=== PATIENT | female | born 1970 | race Caucasian/White ===

== ENCOUNTER 2018-08-21 13:37 | Outpatient (CLI) | payer OTHER ==
--- NOTE | 2018-08-21 18:18 | MRI ---
LEFT KNEE MRI WITHOUT IV CONTRAST: 08/21/18 HISTORY: 48-year-old female with history of M25.562 - pain in left knee. Twisted her ankle. Multiplanar, multisequence MRI examination of the knee is performed. No abnormal joint effusion. Medi al and lateral menisci, anterior and posterior cruciate ligaments, collateral ligament complexes and quadriceps and patellar tendons appear intact. Extensor mechanism is unremarkable. No significant abnormal marrow edema. No acute osteochondral defect. IMPRESSION: No MRI evidence for significant acute internal derangement. POS: ELIZA
== END 2018-08-21 13:38 | disposition home or self-care (01) ==
LOC: SCSMRI 13:37
PROVIDERS: ATTEND Orthopaedic Surgery
DX: M25.562 Pain in left knee (principal); G89.29 Other chronic pain; S83.207D Unspecified tear of unspecified meniscus, current injury, left knee, subsequent encounter

== ENCOUNTER 2019-02-06 12:53 | Outpatient (CLI) | payer OTHER ==
--- NOTE | 2019-02-09 08:16 | MMO ---
Bilateral MAMMO Bilat Screen DDI. CLINICAL HISTORY: Patient is 48 years old and is seen for screening. The patient has no family history of breast cancer. The patient has no personal history of cancer. VIEWS: The views performed were: bilateral craniocaudal and bilateral mediolateral oblique. FILMS COMPARED: The present examination has been compared to prior imaging studies performed at [facility] on 03/14/2011, 09/29/2015 and 10/18/2016, and at [facility] on 11/01/2016. This study has been interpreted with the assistance of computer-aided detection. MAMMOGRAM FINDINGS: There are scattered fibroglandular densities. There are stable benign appearing densities seen in both breasts. There are no suspicious masses, suspicious calcifications, or new areas of architectural distortion. IMPRESSION: THERE IS NO MAMMOGRAPHIC EVIDENCE OF MALIGNANCY. A ROUTINE FOLLOW-UP MAMMOGRAM IN 1 YEAR IS RECOMMENDED. ACR BI-RADS Category 2 - Benign finding MAMMOGRAPHY NOTE: 1. A negative mammogram report should not delay a biopsy if a dominant of clinically suspicious mass is present. 2. Approximately 10% to 15% of breast cancers are not detected by mammography. 3. Adenosis and dense breasts may obscure an underlying neoplasm.
== END 2019-02-06 12:54 | disposition home or self-care (01) ==
LOC: SCSMAMMO 12:53
PROVIDERS: ATTEND Obstetrics & Gynecology
DX: Z12.31 Encounter for screening mammogram for malignant neoplasm of breast (principal)
CPT/HCPCS: 77067

== ENCOUNTER 2019-10-21 09:52 | Inpatient (IN) | payer OTHER ==
--- NOTE | 2019-10-21 10:03 | CT ---
CT HEAD WITHOUT CONTRAST: HISTORY: Level I stroke. Headache x2 days. COMPARISON: None. FINDINGS: Hemorrhage: There is evidence of subarachnoid hemorrhage along the left sylvian fissure and left temp oral sulci. There also is evidence of intraparenchymal hematoma, measuring 5.8 x 2.5 cm. There is associated sulcal effacement. Mild mass effect upon the left lateral ventricle, occipital horn. Mild mass effect upon the left ambient cistern likely due to a small component of the left uncal herniation. There appears be hyperdensity along the left tentorium which may represent subdural hemat brandi. Brain parenchyma: With regard to the right cerebrum, no acute abnormality. Ventricular system: No evidence of hydrocephalus. Calvarium: Intact. Sinuses and mastoid air cells: Adequate aeration. IMPRESSION: Intracranial hemorrhage as described above. Associated sulcal effacement and mass effect. Results study discussed with Dr. Siddiqui on 10/21/2019 at 10:02 a.m. CODE CR Transcribed Date/Time: 10/21/2019 10:19 AM
--- NOTE | 2019-10-21 10:21 | CT ---
CTA HEAD WITH AND WITHOUT CONTRAST: CT BRAIN WITH CONTRAST: CTA NECK WITH CONTRAST: CT NECK SOFT TISSUES WITH CONTRAST: INDICATION: Stroke. COMPARISON: None. TECHNIQUE: CT angiogram of the head and neck are performed in the axial plane. Three-dimensional reformatted socrates ges are submitted for interpretation. FINDINGS: Pathologic enhancement: No pathologic enhancement the brain. Redemonstration of previous identified i ntracranial hemorrhage. Sinuses: Adequate aeration of the paranasal sinuses and mastoid air cells. Orbits: Bilateral ocular lenses are appropriately located. Both globes are intact. Retrobulbar fat is preserved. Symmetric attenuation of the optic nerves and ocular rectus muscles. Salivary glands:Symmetric attenuation of the parotid and submandibular glands. Thyroid gland: Unremarkable. Lymph nodes: No evidence of lymphadenopathy by size criteria. Paraspinal muscles: Symmetric attenuation of the sternocleidomastoid muscles. Appropriate attenuation of the paraspinal muscles. Cervical spine:Vertebral body height is maintained. No fracture. No significant central canal stenosi s or significant neural foraminal narrowing. Limited evaluation by technique. Upper mediastinum and lung apices: Chronic changes. No acute abnormality. Aorta: Visualized aortic arch has appropriate enhancement and luminal diameter. Right carotid artery: The origin of the right carotid artery has appropriate enhancement and luminal diameter. The common carotid artery, carotid bifurcation and internal carotid artery have appropriate enhancement and luminal diameter. No significant stenosis based upon NASCET criteria. Left carotid: The origin of the left carotid artery has appropriate enhancement and luminal diameter. The common carotid artery, carotid bifurcation and internal carotid artery have appropriate enhancement and luminal diameter. No symmetric stenosis based upon NASCET criteria. Subclavian arteries: Patent and symmetric. Vertebral arteries: Patent throughout their course in the neck. Dominant left vertebral artery. Intracranial internal carotid arteries: Symmetric enhancement and luminal diameter. Anterior circulation: Symmetric enhancement and luminal diameter of the A1 segments and proximal A2 s egments. The right M1 segment and proximal MCA branches have appropriate enhancement and luminal diameter. There is mild irregularity involving the entire left M1 segment. There does not appear to b e any abrupt occlusion. There is no evidence of thrombus. With regard to the anterior circulation, no evidence of aneurysm. Intracranial vertebral arteries: Patent. Posterior circulation: Appropriate enhancement and luminal diameter of the basilar artery and bilater al P1 segments. CT VENOGRAM: The suspected left tentorial subdural hematoma is in fact a thrombus in the left transverse sinus. On the CT angiogram there is absence of enhancement of the left transverse sinus, sigmoid sinus and left jugular vein. Small areas of filling defects in the cervical left jugular vein are noted. IMPRESSION: 1. No vascular occlusion at the level [place] of [place]iley. 2. No significant stenosis of the cervical carotid arteries, based upon NASCET criteria. 3. No evidence of a posterior circulation or anterior circulation aneurysm. 4. Irregularity of the left M1 segment likely representing components of vasospasm secondary to subar achnoid blood. 5. Left transverse sinus and sigmoid sinus venous thrombosis with thrombus extending into the left ju gular vein. Results of study discussed with Dr. Siddiqui on 10/21/2019 at 10:19 a.m. CODE CR Transcribed Date/Time: 10/21/2019 10:45 AM
[2019-10-21] MEDS ORDERED: ACETAMINOPHEN IVPB PRN (10:26)
[2019-10-21] MEDS ORDERED: Aminocaproic Acid 5 GM in Sodium Chloride 0.9% 250 ML 250 ML IV SCH (10:30)
[2019-10-21] MEDS ORDERED: Sodium Chloride 0.9% 1,000 ML IV SCH (10:30)
[2019-10-21] MEDS ORDERED: niCARdipine 25 MG in Sodium Chloride 0.9% 250 ML 250 ML IVPB SCH ×2 (10:30→13:43)
[2019-10-21] MEDS ORDERED: Aminocaproic Acid 1 GM in Sodium Chloride 0.9% 250 ML 250 ML IV SCH (10:30)
[2019-10-21 10:44] LABS: #Monocytes 0.5 thou/uL (0.11-0.59); #Neutrophils 7.9 thou/uL (1.40-6.50); %Basophils 0.1 % (0.0-1.0); %Eosinophils 0.1 % (0.0-10.0); %Lymphocytes 10.6 % (21.0-51.0); %Monocytes 5.3 % (0.0-10.0); Hemoglobin 14.8 g/dL (12.0-16.0); Mean Corpuscular HGB CONC 34.2 g/dL (32.0-36.0); Mean Corpuscular Hemoglobin 31.3 pg (27.0-31.0); Mean Corpuscular Volume 91.6 fL (78.0-98.0); Mean Platelet Volume 9.1 fL (7.4-10.4); Platelet Count 217 thou/uL (130-400); RBC Distribution Width 10.7 % (11.5-14.5); Red Blood Cell (RBC) Count 4.74 mill/uL (4.20-5.40); White Blood Cell (WBC) Count 9.4 thou/uL (4.8-10.8)
[2019-10-21 10:52] LABS: Prothrombin Time 12.7 SEC (12.0-14.7)
[2019-10-21 11:08] LABS: ALT (SGPT) 12 U/L (8-55); AST (SGOT) 19 U/L (5-34); Albumin 3.8 g/dL (3.5-5.0); Alkaline Phosphatase 39 U/L (40-110); Anion Gap 14 mmol/L (10-20); BUN (Urea Nitrogen) 13 mg/dL (7.0-18.7); Bilirubin, Total 0.3 mg/dL (0.2-1.2); Calc. Creatinine Clearance 0 mL/min (70-130); Calcium 9.3 mg/dL (7.8-10.44); Carbon Dioxide 21 mmol/L (22-29); Chloride 109 mmol/L (98-107); Estimated GFR-MDRD 76; Globulin 3.1 g/dL (2.4-3.5); Glucose 124 mg/dL (70-105); Potassium 4.6 mmol/L (3.5-5.1); Protein, Total 6.9 g/dL (6.0-8.3); Sodium 139 mmol/L (136-145)
--- NOTE | 2019-10-21 11:38 | MRI ---
MR VENOGRAM: HISTORY: Suspected left dural thrombus. COMPARISON: None. TECHNIQUE: Coronal 2D [id number] imaging is performed. Maximum intensity projection images are submitted for interpretation. FINDINGS: Appropriate flow-related signal in the sagittal sinus, internal cerebral veins, vein of Alex, straig ht sinus, right transverse sinus, right sigmoid sinus and right jugular vein. Absence of flow-related signal in the left transverse sinus, left sigmoid sinus and left jugular vein. IMPRESSION: MRV confirmation of suspected thrombus of the left venous system as commented upon in the CT angiogra m of the head. Transcribed Date/Time: 10/21/2019 12:25 PM
--- NOTE | 2019-10-21 11:44 | MRI ---
MRI BRAIN WITH AND WITHOUT CONTRAST: HISTORY: Venous sinus thrombosis with associated venous infarct. COMPARISON: None. FINDINGS: Gradient echo sequence: Extensive hypointensity corresponding to previously identified intraparenchym al and subarachnoid hemorrhage. Largest component of parenchymal hemorrhage is in the left temporal lobe. Calvarium: Appropriate T1 marrow signal intensity. Midline brain parenchyma: Unremarkable. Cerebrum: Re-demonstration of an intraparenchymal hemorrhage centered in the left temporal lobe. Ther e is associated mass effect, sulcal effacement and edema. The hematoma measures 3.6 x 7.4 cm. Mild mass effect upon the occipital horn of the left lateral ventricle. The axial FLAIR sequence demonstra allison small amounts of subarachnoid blood in the left sylvian fissure and along the left temporal convexity. Additional small amounts of subarachnoid blood are suspected in the left occipital parieta l sulci. Ventricles: No evidence of hydrocephalus. Cisterns: Mild effacement of the left ambient cistern due to a small component of left uncal herniati on. Sinuses and mastoid air cells: Adequate aeration. Diffusion: Central arterial flow is maintained. Scattered restricted diffusion in the left temporal l obe. Post contrast images: Mild dural enhancement overlying the left temporal convexity, in the region of associated underlying parenchymal infarct/hemorrhage. No evidence of an enhancing mass in the left temporal lobe. Evaluation is limited due to extensive edema. IMPRESSION: 1. Large intraparenchymal hemorrhage in the left temporal lobe with associated heterogeneous infarcti on. 2. Enhancement of the overlying dura likely secondary to venous sinus thrombosis involving the left t ransverse sinus, sigmoid sinus and jugular vein. 3. Small amount of left-sided uncal herniation with mild effacement of the left ambient cistern. Transcribed Date/Time: 10/21/2019 12:14 PM
[2019-10-21] MEDS ORDERED: niMODipine 30 MG CAP PO SCH (13:00)
[2019-10-21] MEDS ORDERED: Acetaminophen 650 MG/20.3 ML UDCUP PO PRN (13:09)
[2019-10-21] MEDS: Sodium Chloride 0.9% 1,000 ML IV SCH ×2 (13:21→20:27)
[2019-10-21] MEDS: Ondansetron PF 4 MG/2 ML Vial IVP PRN (13:37)
--- NOTE | 2019-10-21 13:44 | CON ---
DATE OF CONSULTATION: 10/21/2019 CONSULTING PHYSICIAN: Juan Champion MD REASON FOR CONSULTATION: Medical management. HISTORY OF PRESENT ILLNESS: Karen is a 49-year-old female, who came in with a left-sided subarachnoid hemorrhage from venous thrombosis. She has altered mental status and an expressive aphasia. Symptoms started suddenly earlier today. Prior to this, she had been perfectly healthy. PAST MEDICAL HISTORY: Essentially, unremarkable. PAST SURGICAL HISTORY: She had ankle surgery in the past. SOCIAL HISTORY: Nonsmoker. Does not consume alcohol. Does not use illicit drugs. She works full-time as a legal support analyst. MEDICATIONS: Prior to admission, none. ALLERGIES: NONE. REVIEW OF SYSTEMS: Cannot be obtained secondary to her expressive aphasia. PHYSICAL EXAMINATION: VITAL SIGNS: Heart rate 61, blood pressure 118/77, O2 saturation 95%, and respiratory rate 19. GENERAL: She is lying quietly in bed, in no distress. HEENT: Some mild swelling in the left side of her face. NECK: She has no adenopathy. No JVD. LUNGS: Clear. CARDIAC: S1 and S2. Regular. ABDOMEN: Soft. EXTREMITIES: No edema. LABORATORY DATA: Sodium 139, potassium 4.6, chloride 109, CO2 of 21, BUN 13, creatinine 0.8, and glucose 124. INR 1.0, PTT 21.0. White blood cell count 9.4, hematocrit 43.4, and platelet count 217. IMAGING DATA: CT was reviewed in detail. ASSESSMENT: Venous thrombosis with subarachnoid hemorrhage. PLAN: 1. Supportive care with nicardipine drip as needed. Monitor mental status for decline, possible intubation if neuro status deteriorates. 2. Discussed the above with Dr. Champion. 3. I have reviewed the orders and agree with current medicines. Job ID: [id number]
[2019-10-21] MEDS ORDERED: Magnevist 469MG/ML 20 ML VIAL ONE (15:12)
--- NOTE | 2019-10-21 15:20 | CON ---
DATE OF CONSULTATION: 10/21/2019 HISTORY OF PRESENT ILLNESS: The patient is seen and examined. I agree with Chery Avila's evaluation on 10/21/2019. 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 CT scan at that time revealed a left temporal intracerebral hematoma with subarachnoid extension into the left perisylvian fissure. Additional imaging has included CT angiography, MRI of the brain with MRV. These studies revealed no evidence of aneurysm or vascular malformation. They also revealed no evidence of neoplasm. The imaging does reveal significant left-sided venous sinus thrombosis involving the transverse and sigmoid sinuses. A followup CT scan also revealed extension of the left temporal hemorrhage. The degree of mass effect; however, is relatively modest. On exam, the patient has a dense dysphagia both receptive and expressive. There is no focal motor finding. IMPRESSION AND PLAN: Venous sinus thrombosis with intracranial hemorrhage. The degree of intracranial hemorrhage is significant and showed evidence of progression earlier in the day. At this time, it is not surgical in nature, but is high risk for progression. Any meaningful enlargement may become life-threatening, require surgical evacuation. As such, I recommend ongoing close observation, keeping the patient n.p.o., and holding off on any anticoagulation or antiplatelet agents. I have consulted Neurology and discussed the case with them. We will continue to discuss and consider risks and benefits of initiating anticoagulation over the coming days. Discussed in detail with the patient, her mother, her , and her daughter. Job ID: [id number]
--- NOTE | 2019-10-21 15:32 | CT ---
CT HEAD WITHOUT CONTRAST: HISTORY: Dural venous sinus thrombosis with associated hemorrhage and probable venous infarct. COMPARISON: 10/21/2019 CORRELATION: CT angiogram head from 10/21/2019. Brain MRI/MRV from 10/21/2019. FINDINGS: Hemorrhage: Redemonstration of parenchymal hemorrhage centered in the left temporal lobe. The overall degree of parenchymal hemorrhage has not significantly changed and measures 4.5 x 3.1 cm. Redemonstration of subarachnoid hemorrhage as well as thrombosis of the left dural sinus. Brain parenchyma: There appears to be progression of cytotoxic edema involving the left cerebrum. The re is increased sulcal effacement of the left cerebrum. The left frontal sulci and the left occipital sulci appear to have become more effaced. Additionally, there may be a component of decreas ed graves-white matter differentiation in the left occipital parietal region. Stable mass effect upon the left lateral ventricle. Persistent and stable left uncal herniation. Ventricular system: No significant change in the ventricular system. Calvarium: Intact. Sinuses and mastoid air cells: Adequate aeration. IMPRESSION: 1. Worsening edema involving the left cerebrum. There appears to be increased sulcal effacement of th e left cerebrum along with possible loss of graves-white matter differentiation in the left occipital parietal region. 2. Redemonstration of intraparenchymal hemorrhage and subarachnoid hemorrhage as well as the left tra nsverse sinus and sphenoid sinus thrombus. Results of study discussed with Chery Avila, Nurse Practitioner for Neurosurgery on 10/21/2019 at 3 :27 p.m. CODE CR Transcribed Date/Time: 10/21/2019 3:38 PM
[2019-10-21] MEDS: Heparin 25,000 units/D5W 500 ML IV SCH (16:35)
[2019-10-21] MEDS ORDERED: Dexamethasone 10 MG/ML VIAL SLOW IVP SCH (16:45)
[2019-10-21] MEDS: Acetaminophen 325 MG TAB PO PRN (16:49)
[2019-10-21] MEDS: Fentanyl 100 MCG/2 ML VIAL SLOW IVP PRN (17:22)
--- NOTE | 2019-10-21 18:19 | CON ---
DATE OF CONSULTATION: PRIMARY CARE PHYSICIAN: None. PRIMARY TEAM: Neurosurgery, Dr. Champion. REASON FOR CONSULTATION: Medical management. 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 This morning, she developed altered mental status and expressive aphasia. She was brought in originally to the hospital and CT scan demonstrating intracranial hemorrhage. CT angiography and MRI with MRV revealed a left-sided venous sinus thrombosis of the transverse and sigmoid sinuses as well as the left temporal intercerebral hematoma with subarachnoid extension. The patient was seen in the emergency room by Dr. Champion. He determined she was not a candidate for urgent surgical intervention at that time, but started her on steroids and is doing aggressive blood pressure control as of yet. She has not needed any blood pressure medicines though. The patient is now in the ICU. Dr. Go seen the patient as well for critical care. According to the family, who is present at the bedside, her , he stated that her speech has improved since noon. She still has trouble understanding with what we were saying and getting any words out. She was able to communicate, but she has significant headache and we did get approval from Dr. Champion to give small doses of fentanyl. We need to avoid any NSAIDs or aspirin or blood thinners. PAST MEDICAL HISTORY: All history taken from the and the chart. No previous medical problems. PAST SURGICAL HISTORY: Ankle surgery for callus removal in the past. SOCIAL HISTORY: No tobacco, alcohol, or illicit drug use. 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 ALLERGIES: NO KNOWN DRUG ALLERGIES. MEDICATIONS: NuvaRing. PAST FAMILY HISTORY: Unable to obtain at this time secondary to mental status. REVIEW OF SYSTEMS: Cannot be obtained secondary to her aphasia and mental status changes other than she was able to report the headache. PHYSICAL EXAMINATION: VITAL SIGNS: Blood pressure 142/79, pulse 72, respirations 22, and O2 saturation 94% on room air. GENERAL: This is a well-developed, well-nourished white female, lying quietly in bed, in no distress. HEENT: Pupils are not equally sized, both round and reactive to light, the right is about 4 mm and the left is about 3 mm. She does have intact extraocular movements, though has difficulty following my commands to check test some. She has some mild left facial swelling. NECK: Supple. No tenderness to palpation. She is not able to say if she has any pain in the neck. No lymphadenopathy. No JVD. No thyroid nodules or enlargement. HEART: Regular rate and rhythm. No murmurs, rubs, or gallops. LUNGS: Clear to auscultation bilaterally. No wheezes, crackles, or rhonchi. ABDOMEN: Soft. Normoactive bowel sounds. No hepatosplenomegaly or other masses. No guarding or evidence of tenderness to palpation. EXTREMITIES: No clubbing, cyanosis, or edema. NEUROLOGIC: The patient moves all of her extremities, though not always to command. She has to be shown what she needs to do. She is able to reposition herself in the bed with good coordination, earlier when she started sliding down. Speech, she is able to say a few words clearly, but most of the time she cannot get the words out she wants to and does not seem to understand all exactly what we were talking about much of the time. LABORATORY DATA: CBC grossly within normal limits. Coagulation profile shows a PT of 12, INR of 1, and aPTT of 21. Complete metabolic panel is notable for chloride of 109, carbon dioxide of 21, glucose of 124, and alkaline phosphatase of 39 and the rest was within normal limits. Creatine kinase was normal. Troponin was negative x1. CT of the brain along with MRI and MRV of the brain and CTA of the brain all reviewed. See HPI for the results. ASSESSMENT: 1. Venous sinus thrombosis with intracranial hemorrhage. Dr. Champion is managing this with steroids to decrease the swelling that is more evident on the most recent CT scan and we are also going to keep her blood pressure under control. 2. Expressive and receptive aphasia. We will need to have Speech Therapy evaluate her swallow as well and we will have PT and OT work with her as well when she is stabilized in the hospital. For now, she is n.p.o. until cleared to eat by Neurosurgery. 3. Gastrointestinal prophylaxis. The patient is on famotidine twice a day. 4. Deep venous thrombosis prophylaxis. We will put the patient on sequential compression devices while in bed and get her ambulating as soon as safe per Neurosurgery. No anticoagulants at this time. 5. Code status. The patient is a full code. Her medical decision maker is her , his name is Torres Degroot. Job ID: [id number]
--- NOTE | 2019-10-21 18:39 | HP ---
HISTORY OF PRESENT ILLNESS: The patient is a 49-year-old otherwise healthy female, who presented to the emergency department around 8:40 this morning following the development of acute altered mental status. The patient was reportedly normal per her daughter around 7 this morning, but sometime between 7:00 and 8:00 a.m., she became progressively more confused. Her office staff brought her to the emergency department for further evaluation. Her daughter does report that she had been complaining of a headache over the last few days. Upon arrival to the ER, the patient was evaluated with a noncontrast head CT and found to have a large left temporal intracranial hemorrhage with subarachnoid extension into the left sylvian fissure. Neurosurgery was contacted at this point. We recommended transfer to [facility]. Upon arrival to our ER, she was evaluated further with CT of the brain, MRI of the brain with and without contrast, and MRV of the brain, which is notable for blooming left temporal intracranial hemorrhage as well as a left venous thrombosis extending into the transverse and sigmoid sinuses. I examined the patient in the ER at the bedside. She had significant expressive aphasia as well as dysphagia. She had slight right pupillary enlargement, but both were reactive. She was seen moving all fours spontaneously. She would follow some commands. She was somewhat confused and not answering questions appropriately. She has reportedly otherwise healthy and most of the history was obtained from her daughter and friends. PAST MEDICAL HISTORY: Of only migraine headache. PAST SURGICAL HISTORY: Left ankle surgery. SOCIAL HISTORY: The patient does not smoke, drink, or use any drugs. ALLERGIES: SHE HAS NO KNOWN DRUG ALLERGIES. REVIEW OF SYSTEMS: Currently unobtainable secondary to the patient's condition. She does not reportedly take any anticoagulants. PHYSICAL EXAMINATION: GENERAL: The patient is sitting up. She is confused and not answering questions appropriately. HEENT: Her head is normocephalic and atraumatic. Right pupil is slightly larger than the left, 5 mm versus 4, both are reactive to light. ENT, mucosa are pink, intact, and moist. The patient has notable expressive aphasia. NECK: Nontender to palpation. Free active range of motion. No meningismus or nuchal rigidity. RESPIRATORY: Symmetric chest expansion. No evidence of dyspnea. CARDIOVASCULAR: Regular rate and rhythm. MUSCULOSKELETAL: No obvious deformity. She is seen moving all fours spontaneously. She is following some commands and will squeeze my hands and appears to have good strength throughout. NEUROLOGIC: She is quite confused and not oriented to person, place, or time. When she does answer questions, her speech does appear fluid. ASSESSMENT AND PLAN: This is a 49-year-old previously healthy female with acute onset of altered mental status, was found to have a large left temporal intracranial hemorrhage and also underlying left venous thrombosis. She will be admitted to the ICU for close monitoring, q.1 neuro checks. We will keep her systolic blood pressure with a goal of 100 to 150. I have ordered Cardene for this purpose. We will repeat her CT at 1500 hours this afternoon and at that time, determine plan for possible anticoagulation with heparin. We will also ask the Hospitalist Service, Neurology, Critical Care to consult. PT, OT Speech Therapy, and Case Management has also been consulted. We will keep her n.p.o. and watch her closely. Job ID: [id number]
[2019-10-21] MEDS: Dexamethasone 4 mg/ml Vial SLOW IVP SCH (19:02)
[2019-10-21] MEDS: Acetaminophen 650 MG Suppository PR PRN (19:30)
[2019-10-21] MEDS: Famotidine/PF 20 mg/2ml Vial SLOW IVP SCH (21:24)
[2019-10-21] MEDS: levETIRAcetam In NaCl (Iso-Os) 1,000 MG in Premix Bag 1 BAG IVPB SCH (21:24)
[2019-10-22] MEDS: Acetaminophen 650 MG Suppository PR PRN ×2 (00:08→05:20)
[2019-10-22] MEDS: Dexamethasone 4 mg/ml Vial SLOW IVP SCH ×4 (00:08→18:07)
[2019-10-22] MEDS: Fentanyl 100 MCG/2 ML VIAL SLOW IVP PRN ×4 (00:24→16:07)
[2019-10-22] MEDS: Sodium Chloride 0.9% 1,000 ML IV SCH ×3 (04:22→18:08)
[2019-10-22] MEDS: Ondansetron PF 4 MG/2 ML Vial IVP PRN ×2 (07:08→13:14)
--- NOTE | 2019-10-22 08:32 | PRG ---
DATE OF SERVICE: 10/22/2019 SUBJECTIVE: The patient remains in the intensive care unit. She has not had much change in her neuro status. She continues to have a receptive aphasia. Family remains vigilant at bedside. OBJECTIVE: HEENT: Unchanged. NECK: No adenopathy or JVD. LUNGS: Clear. CARDIAC: S1 and S2, regular. ABDOMEN: Soft. EXTREMITIES: No edema. NEUROLOGICAL: She seems weaker in the right arm than the left. LABORATORY DATA: No new labs were done today except for PTT of 29.8. Of note, she is now on heparin drip. ASSESSMENT: The patient has a left-sided intracranial hemorrhage with venous sinus thrombosis. PLAN: She has been being managed by the neurosurgeons with a heparin drip. She has not required nicardipine for hypertension. She remains on IV fluids and dexamethasone. Pulmonary will continue to follow. She is in the ICU. Job ID: [id number]
--- NOTE | 2019-10-22 09:01 | PDOC.HOSPP ---
- Subjective Encounter Date: 10/22/19 Encounter Time: 12:30 Subjective: Patient with difficult night due to pain. Trying to get IV Tylenol right now so won't need sedating opioids. Weakness on right side. Expressive and receptive aphasia worse this AM though possibly due to lack of sleep and very tired. Mother in the room with her right now. Vomiting whenever try to give PO. - Objective Vital Signs & Weight: Vital Signs (12 hours) Temp 10/22/19 04:00 98.8 F 10/22/19 00:00 97.7 F Weight Weight 164 lb 0.383 oz Most Recent Monitor Data Heart Rate from ECG 63 NIBP 118/72 NIBP BP-Mean 87 Respiration from ECG 16 SpO2 97 I&O: 10/21/19 10/22/19 10/23/19 06:59 06:59 06:59 Intake Total 2321.7 Output Total 1000 Balance 1321.7 Result Diagrams: 10/22/19 11:28 10/22/19 11:28 Hospitalist ROS - Review of Systems ROS unobtainable: due to mental status Gastrointestinal: reports: vomiting Neurological: reports: weakness, change in speech - Medication Medications: Active Medications Generic Name Dose Route Start Last Admin Trade Name Freq PRN Reason Stop Dose Admin Acetaminophen 650 mg 10/21/19 16:33 10/21/19 16:49 Tylenol PO 650 mg Q6H PRN Administration Headache/Fever or Pain Acetaminophen 650 mg 10/21/19 17:07 10/22/19 05:20 Tylenol NH 650 mg Q4H PRN Administration Headache/Fever or Pain Dexamethasone 4 mg 10/21/19 18:00 10/22/19 06:18 Decadron SLOW IVP 4 mg Q6HR YASHIRA Administration Famotidine 20 mg 10/21/19 21:00 10/21/19 21:24 Pepcid SLOW IVP 20 mg Q12HR YASHIRA Administration Fentanyl 50 mcg 10/21/19 17:10 10/22/19 03:04 Sublimaze SLOW IVP 50 mcg Q2H PRN Administration Severe Pain (7-10) Levetiracetam 1,000 mg/ Device 100 mls @ 200 mls/hr 10/21/19 21:00 10/21/19 21:24 IVPB 100 mls BID YASHIRA Administration Sodium Chloride 1,000 mls @ 150 mls/hr 10/21/19 13:15 10/22/19 04:22 Normal Saline 0.9% IV 1,000 mls .Q6H40M YASHIRA Administration Heparin Sodium/Dextrose 500 mls @ 0 mls/hr 10/21/19 15:45 10/21/19 16:35 Heparin 25,000 Units/D5w 500 Ml IV 500 mls INF YASHIRA Administration Protocol As Directed Ondansetron HCl 4 mg 10/21/19 10:19 10/22/19 07:08 Zofran IVP 4 mg Q6H PRN Administration Nausea/Vomiting - Exam General - other findings: sleepy, arousable ENT: moist mucosa Heart: RRR, no murmur, no gallops, no rubs Respiratory: CTAB, no wheezes, no rales, no ronchi Gastrointestinal: soft, non-tender, non-distended, normal bowel sounds Psychiatric: somnolent Psychiatric - other findings: not talking right now Hosp A/P (1) Cerebral venous sinus thrombosis, acute Code(s): G08 - INTRACRANIAL AND INTRASPINAL PHLEBITIS AND THROMBOPHLEBITIS Status: Acute (2) Intracranial hemorrhage Code(s): I62.9 - NONTRAUMATIC INTRACRANIAL HEMORRHAGE, UNSPECIFIED Status: Acute (3) Combined receptive and expressive aphasia Code(s): R47.01 - APHASIA Status: Acute - Plan DVT proph w/SCDs Being treated by neurosurgery with heparin drip, no surgical intervention at this time on Keppra for seizure prevention GI proph: Pecid DVT proph: SCDs, on heparin
--- NOTE | 2019-10-22 09:15 | CT ---
PRELIMINARY REPORT/[facility]/EMERGENCY AFTER HOURS PROCEDURE: EXAM: CT Head Without Intravenous Contrast. CLINICAL HISTORY: [facility] F/U TECHNIQUE: Axial computed tomography images of the head/brain without intravenous contrast. COMPARISON: CT\MN\SR - CT BRAIN WO CON - 10/21/2019 09:55 AM [facility]CH[facility] HAND FINDINGS: BRAIN: There is a large intraparenchymal hematoma measuring about 3.3 x 5.4 x 6 cm in the left watch guard gate ior frontal lobe, similar to prior examination. There is increased vasogenic edema causing mild midli ne shift to the right side for about 8 mm. Small amount of subarachnoid hemorrhage seen in the right frontal region. VENTRICLES: No hydrocephalus. ORBITS: The orbits are unremarkable. SINUSES AND MASTOIDS: The paranasal sinuses and mastoid air cells are clear. SOFT TISSUES: No significant facial or scalp soft tissue swelling evident. No radiopaque foreign body is seen. BONES: No acute skull fracture. IMPRESSION: There is a large intraparenchymal hematoma in the left posterior frontal lobe, similar to prior exami [facility]. There is increased vasogenic edema causing mild midline shift to the right side for about 8 m m. Small amount of subarachnoid hemorrhage seen in the right frontal region. ELECTRONICALLY SIGNED BY: Betsey Samaniego MD Oct 22, 2019 5:00:05 AM [facility] This report is intended for review by the ordering physician only, in accordance of law. If you recei ve this report in error, please call [facility] at [phone]. FINAL REPORT CT BRAIN WITHOUT CONTRAST: HISTORY: Fall with subarachnoid hemorrhage. COMPARISON: Multiple prior exams. FINDINGS: The findings and impression are concordant with the preliminary report. There is some low-grade subf alcine 2-3 mm shift. Vasogenic edema is slightly increased. There is mass effect upon the body and f rontal horn of the left lateral ventricle as well as some mass effect upon the left basilar cistern s lightly increased. Loss of sulcation throughout the left frontal and parietal lobe. There continues to be asymmetric hyperdensity of the left transverse sinus. IMPRESSION: Findings and impression are concordant with the preliminary report. POS: CET
[2019-10-22] MEDS: Famotidine/PF 20 mg/2ml Vial SLOW IVP SCH ×2 (09:20→21:50)
[2019-10-22] MEDS: levETIRAcetam In NaCl (Iso-Os) 1,000 MG in Premix Bag 1 BAG IVPB SCH ×2 (09:21→21:50)
--- NOTE | 2019-10-22 10:49 | PRG ---
DATE OF SERVICE: 10/22/2019 The patient is seen and examined. She was relatively stable overnight. She has headache, nausea, and vomiting. She continues to have a dense receptive and expressive aphasia. Two head CTs have been performed in the past 24 hours. There has been some progression in edema in the left hemisphere with some increase sulcal effacement and presumably pressure in the left hemisphere. The overall amount of hemorrhage does not seem to have changed; however. After extensive discussion with colleagues and treating physicians, we elected to start a very low dose of heparin yesterday. No bolus was used. An 8 units/hour were initiated. Our target at first will be a range of 60 to 80 PTT. We will continue to gradually advance the heparin to achieve this target. As the week progresses, we can increase the therapeutic range of the heparin and ultimately convert her over to oral agents. The patient has a NuvaRing, which may ultimately need to be removed. We have initiated Decadron for edema. We will start diet today. Mobilize with physical therapy as well as occupational therapy and speech consultation. We will continue to obtain daily head CT. I visited in detail with the patient's and mother and all questions were answered. I did express that I feel the patient remains critically ill and that her situation remains quite precarious with regard to this serious and life-threatening hemorrhage. Job ID: [id number]
[2019-10-22 11:49] LABS: Hemoglobin 12.8 g/dL (12.0-16.0); Mean Corpuscular Hemoglobin 32.3 pg (27.0-31.0); Mean Corpuscular Volume 92.3 fL (78.0-98.0); Platelet Count 211 thou/uL (130-400); RBC Distribution Width 10.6 % (11.5-14.5); Red Blood Cell (RBC) Count 3.95 mill/uL (4.20-5.40); White Blood Cell (WBC) Count 11.9 thou/uL (4.8-10.8)
[2019-10-22 12:02] LABS: Anion Gap 11 mmol/L (10-20); BUN (Urea Nitrogen) 10 mg/dL (7.0-18.7); Calc. Creatinine Clearance 111 mL/min (70-130); Calcium 8.2 mg/dL (7.8-10.44); Carbon Dioxide 21 mmol/L (22-29); Chloride 111 mmol/L (98-107); Estimated GFR-MDRD 86; Glucose 140 mg/dL (70-105); Potassium 3.7 mmol/L (3.5-5.1); Sodium 139 mmol/L (136-145)
[2019-10-22 12:06] LABS: Band 5 % (5-11); Lymphocytes 12 % (21-51); MDiff Complete? YES; Monocytes 5 % (0-10); Neutrophil 78 % (42-75); RBC Morphology Normal
[2019-10-22] MEDS: Acetaminophen 1,000 MG in Premix Bag 1 BAG IVPB PRN ×2 (13:11→20:09)
[2019-10-22] MEDS ORDERED: manNITOL 20% 250 ML IVPB SCH (15:45)
[2019-10-22] MEDS ORDERED: Mannitol 12.5 GM/50 ML IV SCH (15:45)
[2019-10-22] MEDS: Heparin 25,000 units/D5W 500 ML IV SCH (21:52)
--- NOTE | 2019-10-22 23:22 | CON ---
DATE OF CONSULTATION: 10/22/2019 CONSULT PHYSICIAN: Dr. Champion. IMPRESSION: Left temporal venous infarct with secondary bleed. PLAN: Continue current management. 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 She was on NuvaRing prior to admission. She went and told her daughter that she was having a fairly bad headache. She decided to go on to work. She was able to work through the day. She later deteriorated and started having expressive aphasia. She was rushed here for evaluation. Her CT scan of the brain and CTA suggested venous infarct in the left temporal lobe. MRI of the brain confirmed same findings. A followup CT of the brain did not show any had advancement of the hemorrhage, but there was a slight worsening of the edema. She was started on a heparin drip yesterday. She has received some Decadron and mannitol today. She has been very sleepy today. She was having some nausea and vomiting earlier in the day. She has not had any seizure activity. PAST MEDICAL HISTORY: Otherwise negative. ALLERGIES: NONE. SOCIAL HISTORY: No tobacco or alcohol use. FAMILY HISTORY: Noncontributory. REVIEW OF SYSTEMS: Not obtainable at this time due to her lethargy. PHYSICAL EXAMINATION: GENERAL: She is a healthy-appearing middle-aged woman, sleeping quietly. HEENT: Pupils equal. Cranium, normocephalic and atraumatic. NECK: No lymphadenopathy. NEUROLOGIC: Postponed due to her current state. SUMMARY: Middle-aged woman who was on hormones, had subsequent venous occlusion and secondary infarct. I agree with your management. There is not much I can add at this point. Job ID: [id number]
[2019-10-23] MEDS: Dexamethasone 4 mg/ml Vial SLOW IVP SCH ×4 (00:06→17:40)
[2019-10-23] MEDS: Acetaminophen 1,000 MG in Premix Bag 1 BAG IVPB PRN (03:23)
[2019-10-23] MEDS: Sodium Chloride 0.9% 1,000 ML IV SCH ×3 (03:23→13:37)
[2019-10-23 03:50] LABS: MDiff Complete? YES; Mean Corpuscular HGB CONC 34.6 g/dL (32.0-36.0); Mean Corpuscular Volume 92.3 fL (78.0-98.0); Mean Platelet Volume 9.7 fL (7.4-10.4); Platelet Count 194 thou/uL (130-400); RBC Distribution Width 10.7 % (11.5-14.5); Red Blood Cell (RBC) Count 3.76 mill/uL (4.20-5.40); White Blood Cell (WBC) Count 9.5 thou/uL (4.8-10.8)
[2019-10-23 03:51] LABS: Band 26 % (5-11); Lymphocytes 5 % (21-51); Monocytes 3 % (0-10); Neutrophil 66 % (42-75); Platelet Morphology Comment Appears Adequate
[2019-10-23 04:12] LABS: Anion Gap 12 mmol/L (10-20); BUN (Urea Nitrogen) 9 mg/dL (7.0-18.7); Calc. Creatinine Clearance 119 mL/min (70-130); Calcium 7.8 mg/dL (7.8-10.44); Carbon Dioxide 20 mmol/L (22-29); Chloride 109 mmol/L (98-107); Estimated GFR-MDRD Greater than 90; Glucose 162 mg/dL (70-105); Potassium 3.7 mmol/L (3.5-5.1); Sodium 137 mmol/L (136-145)
--- NOTE | 2019-10-23 07:32 | PDOC.HOSPP ---
- Subjective Encounter Date: 10/23/19 (f/u venous thrombosis) Encounter Time: 07:31 non-verbal Subjective: This morning nursing staff notes lack of movement in the right arm. Pt was able to assist with transfer to CT scanner. Opens eyes. - Objective Vital Signs & Weight: Vital Signs (12 hours) Temp Pulse Ox 10/23/19 04:00 98.6 F 10/23/19 00:00 98.8 F 10/22/19 20:00 99.2 F 97 Weight Weight 168 lb 6.931 oz Most Recent Monitor Data Heart Rate from ECG 53 NIBP 106/64 NIBP BP-Mean 78 Respiration from ECG 14 SpO2 96 I&O: 10/22/19 10/23/19 10/24/19 06:59 06:59 06:59 Intake Total 2321.7 4136 Output Total 1000 1715 Balance 1321.7 2421 Result Diagrams: 10/23/19 03:03 10/23/19 03:03 EKG Reviewed by me: Yes (tele - sinus [place] in the 40's, brief narrow complex tachy earlier today) Hospitalist ROS - Medication Medications: Active Medications Generic Name Dose Route Start Last Admin Trade Name Freq PRN Reason Stop Dose Admin Acetaminophen 650 mg 10/21/19 16:33 10/21/19 16:49 Tylenol PO 650 mg Q6H PRN Administration Headache/Fever or Pain Acetaminophen 650 mg 10/21/19 17:07 10/22/19 05:20 Tylenol DE 650 mg Q4H PRN Administration Headache/Fever or Pain Dexamethasone 4 mg 10/21/19 18:00 10/23/19 06:27 Decadron SLOW IVP 4 mg Q6HR YASHIRA Administration Famotidine 20 mg 10/21/19 21:00 10/22/19 21:50 Pepcid SLOW IVP 20 mg Q12HR YASHIRA Administration Fentanyl 50 mcg 10/21/19 17:10 10/22/19 16:07 Sublimaze SLOW IVP 50 mcg Q2H PRN Administration Severe Pain (7-10) Levetiracetam 1,000 mg/ Device 100 mls @ 200 mls/hr 10/21/19 21:00 10/22/19 21:50 IVPB 100 mls BID YASHIRA Administration Sodium Chloride 1,000 mls @ 150 mls/hr 10/21/19 13:15 10/23/19 03:23 Normal Saline 0.9% IV 1,000 mls .Q6H40M YASHIRA Administration Heparin Sodium/Dextrose 500 mls @ 0 mls/hr 10/21/19 15:45 10/22/19 21:52 Heparin 25,000 Units/D5w 500 Ml IV 500 mls INF YASHIRA Administration Protocol As Directed Acetaminophen 1,000 mg/ Device 100 mls @ 400 mls/hr 10/22/19 12:15 10/23/19 03:23 IVPB 10/23/19 12:16 100 mls Q6H PRN Administration Pain Ondansetron HCl 4 mg 10/21/19 10:19 10/22/19 13:14 Zofran IVP 4 mg Q6H PRN Administration Nausea/Vomiting - Exam General Appearance: NAD Eye - other findings: opens eyes briefly, moves head Heart: RRR, no murmur Heart - other findings: bradycardic Respiratory: CTAB, no wheezes Gastrointestinal: soft, non-distended, normal bowel sounds Extremities: no cyanosis, no clubbing, no edema Neurological - other findings: unable to adequately assess Musculoskeletal - other findings: 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 filter operator helper on right hand Psychiatric - other findings: unable to assess secondary to aphasia Hosp A/P (1) Cerebral venous sinus thrombosis, acute Code(s): G08 - INTRACRANIAL AND INTRASPINAL PHLEBITIS AND THROMBOPHLEBITIS Status: Acute (2) Bradycardia Code(s): R00.1 - BRADYCARDIA, UNSPECIFIED Status: Acute (3) Combined receptive and expressive aphasia Code(s): R47.01 - APHASIA Status: Acute (4) Intracranial hemorrhage Code(s): I62.9 - NONTRAUMATIC INTRACRANIAL HEMORRHAGE, UNSPECIFIED Status: Acute - Plan Change in status - Neurosurgery contacted - PTT above goal earlier - gtt was decreased, request stat PTT now and hold gtt - on steroids, keppra Blood sugar slightly elevated - will add sliding scale insulin Bradycardia - monitor normotensive - meds not needed GI prophy - famotidine DVT prophy - SCD's and heparin gtt code status full Pt remains in critical condition
[2019-10-23] MEDS ORDERED: HumaLOG 300 UNITS/3 ML VIAL SC PRN ×2 (07:37)
[2019-10-23] MEDS ORDERED: Dextrose 50% Abboject 50 ML SYRINGE SLOW IVP PRN (07:37)
[2019-10-23] MEDS ORDERED: Dextrose 5% in Water 1,000 ML IV PRN (07:37)
--- NOTE | 2019-10-23 07:41 | CT ---
PRELIMINARY REPORT/[facility]/EMERGENCY AFTER HOURS PROCEDURE: History: Follow-up hemorrhage. CT head without contrast. Comparison: 10/22/2019 and 10/21/2019. Findings: There is redemonstration of an evolving parenchymal hemorrhage centered in the left tempora l lobe. Hematoma size is relatively unchanged. Trace subarachnoid blood products in the left sylvian fissure anteriorly. Diffuse surrounding vasogenic edema with mass effect on the left lateral ventricle. Similar degree o f [id number]-cz-[id number] midline shift. The ventricles are not enlarged. The remainder of the grvaes-white differentiation is maintained. The orbits and paranasal sinuses are unremarkable. The calvarium and overlying soft tissues are inta ct. Impression: 1. Redemonstration of large parenchymal hemorrhage centered in the left temporal lobe. Trace subara chnoid blood products seen just anteriorly without change. 2. Extensive surrounding vasogenic edema with similar degree of tbum-rh-zyutt midline shift. ELECTRONICALLY SIGNED BY: Richard Lorenzo MD Oct 23, 2019 5:26:51 AM SENIOR ASSISTANT MANAGER FINAL REPORT: HEAD CT [id number] CONTRAST: DATE: 10/23/2019. COMPARISON: 10/22/2019. HISTORY: Reevaluate intracranial hemorrhage. FINDINGS: There is a large area of hypodensity and multifocal intraaxial hemorrhage within the left temporal lo be suggesting hemorrhagic infarction. This involves a portion of the temporal lobe and frontal lobe measuring at least 8.3 cm in AP dimension, increased from 7.4 cm on the most recent prior exam. There is slight interval worsening of mass effect within the left cerebral hemisphere with crowding of cortical sulci throughout the majority of the left cerebral hemisphere. There is a left to right midl ine shift measuring approximately 5 mm at the level of the septum pellucidum, which may have minimally worsened. There is mass effect on the frontal horn of the left lateral ventricle which has slightly worsened as well. Small volume subarachnoid hemorrhage is suspected within the sylvian fissure, not significantly changed. There is hyperdensity in the region of the left sigmoid sinus and transverse sinus, evidence of dural venous thrombosis. IMPRESSION: Evidence of dural venous thrombosis with large area of hemorrhagic venous infarction within left temp oral lobe. Slight interval worsening of mass effect within the left cerebral hemisphere as detailed above. Transcribed Date/Time: 10/23/2019 7:47 AM
[2019-10-23] MEDS ORDERED: CCU Electrolyte Replacement 1 EACH FS ONE (07:46)
[2019-10-23] MEDS ORDERED: Potassium Phosphate 12 MMOL in Sodium Chloride 0.9% 250 ML 250 ML IV PRN (07:54)
[2019-10-23] MEDS ORDERED: Potassium Phosphate 15 MMOL in Sodium Chloride 0.9% 250 ML 250 ML IV PRN (07:54)
[2019-10-23] MEDS ORDERED: Potassium Chloride 20 MEQ TAB PO PRN (07:54)
[2019-10-23] MEDS ORDERED: Potassium Chloride 40 MEQ in Sodium Chloride 0.9% 250 ML 250 ML IVPB PRN (07:54)
[2019-10-23] MEDS ORDERED: Magnesium Oxide 400 MG TAB PO PRN ×2 (07:54)
[2019-10-23] MEDS ORDERED: Magnesium 2 GM/50 ML 2 GM in Premix Bag 1 BAG IVPB PRN (07:54)
[2019-10-23] MEDS ORDERED: Potassium Phosphate 9 MMOL in Sodium Chloride 0.9% 100 ML IVPB PRN (07:54)
[2019-10-23] MEDS ORDERED: Potassium Chloride 40 MEQ in Premix Bag 1 BAG IVPB PRN (07:54)
[2019-10-23] MEDS ORDERED: PHOS-NAK 1 PKT PACK PO PRN ×2 (07:54)
[2019-10-23] MEDS ORDERED: Potassium Chloride 20 MEQ TAB PO SCH (08:00)
[2019-10-23] MEDS ORDERED: Heparin 25,000 units/D5W 500 ML IV SCH (08:30)
--- NOTE | 2019-10-23 08:40 | PRG ---
DATE OF SERVICE: 10/23/2019 SUBJECTIVE: She is now expressing right-sided neglect. When I asked her question, she nods yes to everything. I do not think she is understanding any thing that I asked of her. OBJECTIVE: VITAL SIGNS: Temperature 98.6, pulse 53, blood pressure 106/64, and O2 saturation 96%. HEENT: Unremarkable. She still has a gag reflex. NECK: No adenopathy or JVD. LUNGS: Clear anteriorly. CARDIOVASCULAR: S1 and S2. Regular. ABDOMEN: Soft. EXTREMITIES: No edema. LABORATORY DATA: Sodium 137, potassium 3.7, chloride 109, CO2 of 20, BUN 9, creatinine 0.6, glucose 162. White blood cell count 9.5, hematocrit 34.7, and platelet count 194. ASSESSMENT: 1. Central venous thrombosis. 2. Extensive intraparenchymal bleed. PLAN: She is continued on anticoagulation per protocol. Neurology and Neurosurgery are managing those issues. Right now, her airway is stable. She will continue to be watched in the CCU. Job ID: [id number]
--- NOTE | 2019-10-23 09:40 | PRG ---
DATE OF SERVICE: 10/23/2019 I am visiting with Ms. Degroot this morning at the bedside. Overnight, she was stable, but early this morning she had some increased right-sided weakness. A noncontrast CT head was repeated this morning. It shows a relatively stable size of the hemorrhage. However, some ongoing vasogenic edema is surrounding. Her repeat PTT this morning is 102. We have decreased the heparin drip per the protocol and we will check another stat PTT. Her sodium levels are 137. I examined the patient this morning. She remains awake and alert. She is significantly aphasic, expressive and receptive. She has good strength on the left side in the upper and lower extremity. She does have some moderate drift on the right in the upper and lower extremity. Her pupils remain slightly unequal, right is 5 mm, left is 4, but these react briskly to light. I have discussed the above with Dr. Champion. We will decrease the heparin drip per the protocol. I have updated the protocol to the ischemic heparin protocol, which has more aggressive slowing of the rate and this is in the chart. Dr. Champion, myself, the nurse and the pharmacist all discussed this together and are in agreement with the plan. I will continue to follow with a repeat stat PTT as well as closely follow her exam and adjust the rate accordingly. Job ID: [id number]
[2019-10-23] MEDS: levETIRAcetam In NaCl (Iso-Os) 1,000 MG in Premix Bag 1 BAG IVPB SCH ×2 (09:44→21:53)
[2019-10-23] MEDS: Famotidine/PF 20 mg/2ml Vial SLOW IVP SCH ×2 (09:45→21:53)
[2019-10-23] MEDS: Acetaminophen 325 MG TAB PO PRN (13:39)
[2019-10-23] MEDS: Ondansetron PF 4 MG/2 ML Vial IVP PRN (14:13)
--- NOTE | 2019-10-23 15:25 | EKG ---
Test Reason : Blood Pressure : / mmHG Vent. Rate : 058 BPM Atrial Rate : 058 BPM P-R Int : 144 ms QRS Dur : 086 ms QT Int : 414 ms P-R-T Axes : 073 037 042 degrees QTc Int : 406 ms Sinus bradycardia with sinus arrhythmia Possible Lateral infarct , age undetermined Abnormal ECG No previous ECGs available Confirmed by DR. Anjana HINTON ([id number]) on 10/23/2019 3:25:25 PM Referred By: ORTIZ Confirmed By:DR. Anjana HINTON
--- NOTE | 2019-10-23 17:50 | PRG ---
DATE OF SERVICE: 10/23/2019 SUBJECTIVE: The patient is seen and examined. She arouses easily and engages with the examiner. She has right-sided neglect. She has dense receptive and expressive aphasia, although she does occasionally say single words. OBJECTIVE: On physical exam, she seems to have good lower extremity strength, but has meaningful right arm weakness. Full motor exam is difficult given the aphasia. CT this morning shows no meaningful increase in the size of the hemorrhage but subtle increase in edema and mass effect. PTT was 104 this morning and her drip has been adjusted accordingly. Sodium was 137. IMPRESSION AND PLAN: The patient is generally clinically stable. There has been some modest progression of weakness over the last 48 hours as well as neglect. This is likely related to edema and mass effect. We are treating this with Decadron and one dose of mannitol. We will use additional mannitol as needed. We will continue with anticoagulation with the current target PTT of 60-80, but if things continue to stabilize, we will increase the target range to 80-100. Discussed in detail with the patient and her family. Job ID: [id number]
[2019-10-24] MEDS: Sodium Chloride 0.9% 1,000 ML IV SCH ×5 (00:30→21:15)
[2019-10-24] MEDS: Dexamethasone 4 mg/ml Vial SLOW IVP SCH ×5 (00:31→23:40)
[2019-10-24 03:41] LABS: #Lymphocytes 0.7 thou/uL (1.20-3.40); #Monocytes 0.3 thou/uL (0.11-0.59); #Neutrophils 5.1 thou/uL (1.40-6.50); %Basophils 0.2 % (0.0-1.0); %Eosinophils 0.1 % (0.0-10.0); %Lymphocytes 10.8 % (21.0-51.0); %Monocytes 4.8 % (0.0-10.0); %Neutrophils 84.1 % (42.0-75.0); Hemoglobin 12.2 g/dL (12.0-16.0); Mean Corpuscular HGB CONC 34.3 g/dL (32.0-36.0); Mean Corpuscular Hemoglobin 32.1 pg (27.0-31.0); Mean Corpuscular Volume 93.7 fL (78.0-98.0); Mean Platelet Volume 9.9 fL (7.4-10.4); Platelet Count 157 thou/uL (130-400); RBC Distribution Width 10.8 % (11.5-14.5); Red Blood Cell (RBC) Count 3.79 mill/uL (4.20-5.40); White Blood Cell (WBC) Count 6.1 thou/uL (4.8-10.8)
[2019-10-24 03:53] LABS: Anion Gap 11 mmol/L (10-20); BUN (Urea Nitrogen) 10 mg/dL (7.0-18.7); Calc. Creatinine Clearance 112 mL/min (70-130); Calcium 8.1 mg/dL (7.8-10.44); Carbon Dioxide 19 mmol/L (22-29); Chloride 111 mmol/L (98-107); Estimated GFR-MDRD 85; Glucose 155 mg/dL (70-105); Potassium 4.1 mmol/L (3.5-5.1); Sodium 137 mmol/L (136-145)
--- NOTE | 2019-10-24 07:52 | CT ---
PRELIMINARY REPORT/[facility]/EMERGENCY AFTER HOURS PROCEDURE: History: Follow-up hemorrhage. CT head without contrast. Comparison: 08/02/20 and 10/22/2019. Findings: Redemonstration of an evolving large parenchymal hemorrhage centered in the left temporal r egion. Similar appearance of hematoma size. Trace subarachnoid hemorrhage in the left sylvian fissure redemonstrated. Surrounding vasogenic edema with approximately 7-8 mm lsyd-hw-tuujw midline s hift. Similar mass effect on the left lateral ventricle. The remainder of the graves-white differentiation is maintained. The orbits and paranasal sinuses are u nremarkable. The calvarium and overlying soft tissues are unchanged. Impression: Stable appearance of left temporal parenchymal hemorrhage with surrounding vasogenic edema and 7-8 mm ccai-iv-ehhms mid line shift. Trace subarachnoid hemorrhage again noted in the left sylvian fissure. ELECTRONICALLY SIGNED BY: Richard Lorenzo MD Oct 24, 2019 4:20:46 AM CUSTODY OFFICER FINAL REPORT CT BRAIN WITHOUT CONTRAST: History: Hemorrhage. Comparison: CT prior day. Findings: Slight progressive left to right midline shift. Worsening effacement of the left basilar cistern. No hydrocephalus is yet appreciated. Impression: Findings and impression are concordant with the preliminary report. Transcribed Date/Time: 10/24/2019 7:57 AM
--- NOTE | 2019-10-24 09:01 | PRG ---
DATE OF SERVICE: 10/24/2019 SUBJECTIVE: A 49-year-old female, status post intracerebral hemorrhage, left- sided temporal area. There is some residual edema still present. OBJECTIVE: GENERAL: This morning, she is sitting on the side of the bed without any distress. Aphasic. VITAL SIGNS:p 80_ blood pressure 130/80, respiratory rate 20 CHEST: Decreased breath sounds. No wheezing. CARDIAC: Normal S1, S2. No gallops. No masses. LABORATORY DATA: PTT is 69. White count is 6000, blood sugar is 155. IMPRESSION: 1. Cerebral venous thrombosis. 2. Left intracranial hemorrhage. 3. Aphasia. PLAN: Discontinue Grande as per the patient's request. Continue PT, supportive care. Continue heparin. We will follow while in the ICU. Job ID: [id number] MTDD
[2019-10-24] MEDS: Famotidine/PF 20 mg/2ml Vial SLOW IVP SCH ×2 (09:17→21:34)
[2019-10-24] MEDS: levETIRAcetam In NaCl (Iso-Os) 1,000 MG in Premix Bag 1 BAG IVPB SCH ×2 (09:17→21:35)
--- NOTE | 2019-10-24 09:18 | PRG ---
DATE OF SERVICE: 10/24/2019 SUBJECTIVE: The patient remains stable in the ICU. This morning, she is sitting up and she has eaten a small amount of breakfast. Her CT head is stable with no significant changes. Her most recent PTT was 69. Her sodium is 137. Her blood sugar has been slightly elevated with a glucose of 155, which the family was concerned about. This is like due to decadron use. Pt and family also requesting morejon removal. OBJECTIVE: On exam, this morning, the patient is sitting up in the chair. She continues to have significant right-sided weakness, but has good strength in the left upper and lower extremity. Her pupils are still slightly unequal with the right is slightly larger than the left, they react briskly. She continues to have significant receptive and expressive aphasia, but this does appear slightly improved this morning. ASSESSMENT AND PLAN: Will adjust to a custom heparin protocol which I have signed in the chart. New target PTT 80-100. I have ordered a repeat CT head for her in the morning. We will continue her IV fluids and her Decadron as ordered. I have discussed with the family the benefits of this medication and I do not feel that her blood sugars are too high at this point. We will continue to work with PT/OT and mobilize appropriately. We will go ahead and remove her Morejon catheter today but they understand that if any further mannitol were needed in the future it would require replacement. Job ID: [id number] MTDD
--- NOTE | 2019-10-24 09:37 | PDOC.HOSPP ---
- Subjective Encounter Date: 10/24/19 (f/u stroke) Encounter Time: 09:35 Subjective: Pt this morning is sitting up in a chair this morning. Able to answer some questions, follow commands. no overnight events. - Objective Vital Signs & Weight: Vital Signs (12 hours) Temp 10/24/19 08:00 98.6 F 10/24/19 04:00 98.8 F 10/24/19 00:00 99.1 F Weight Admit Weight 161 lb Weight 169 lb 15.622 oz Most Recent Monitor Data Heart Rate from ECG 46 NIBP 127/71 NIBP BP-Mean 89 Respiration from ECG 16 SpO2 96 I&O: 10/23/19 10/24/19 10/25/19 06:59 06:59 06:59 Intake Total 4136 3509 Output Total 1713 2840 225 Balance 2421 669 -225 Result Diagrams: 10/24/19 03:04 10/24/19 03:04 Additional Labs: Accuchecks 10/23/19 10/23/19 21:54 16:11 POC Glucose 157 H 163 H EKG Reviewed by me: Yes (tele - sinus currently 70's, as low as 40's) Hospitalist ROS - Medication Medications: Active Medications Generic Name Dose Route Start Last Admin Trade Name Freq PRN Reason Stop Dose Admin Acetaminophen 650 mg 10/21/19 16:33 10/23/19 13:39 Tylenol PO 650 mg Q6H PRN Administration Headache/Fever or Pain Acetaminophen 650 mg 10/21/19 17:07 10/22/19 05:20 Tylenol SC 650 mg Q4H PRN Administration Headache/Fever or Pain Dexamethasone 4 mg 10/21/19 18:00 10/24/19 05:43 Decadron SLOW IVP 4 mg Q6HR YASHIRA Administration Famotidine 20 mg 10/21/19 21:00 10/24/19 09:17 Pepcid SLOW IVP 20 mg Q12HR YASHIRA Administration Fentanyl 50 mcg 10/21/19 17:10 10/22/19 16:07 Sublimaze SLOW IVP 50 mcg Q2H PRN Administration Severe Pain (7-10) Levetiracetam 1,000 mg/ Device 100 mls @ 200 mls/hr 10/21/19 21:00 10/24/19 09:17 IVPB 100 mls BID YASHIRA Administration Sodium Chloride 1,000 mls @ 150 mls/hr 10/21/19 13:15 10/24/19 05:42 Normal Saline 0.9% IV 1,000 mls .Q6H40M YASHIRA Administration Heparin Sodium/Dextrose 500 mls @ 0 mls/hr 10/23/19 08:30 10/24/19 05:39 Heparin 25,000 Units/D5w 500 Ml IV 500 mls INF YASHIRA Administration Protocol As Directed Ondansetron HCl 4 mg 10/21/19 10:19 10/23/19 14:13 Zofran IVP 4 mg Q6H PRN Administration Nausea/Vomiting - Exam General Appearance: NAD ENT - other findings: right facial droop Heart: RRR, no murmur Respiratory: CTAB, no wheezes, no rales, no ronchi Gastrointestinal: soft, non-tender, non-distended, normal bowel sounds Extremities - other findings: trace pitting edema right > left Neurological: cranial nerve grossly intact Hosp A/P (1) Cerebral venous sinus thrombosis, acute Code(s): G08 - INTRACRANIAL AND INTRASPINAL PHLEBITIS AND THROMBOPHLEBITIS Status: Acute (2) Bradycardia Code(s): R00.1 - BRADYCARDIA, UNSPECIFIED Status: Acute (3) Combined receptive and expressive aphasia Code(s): R47.01 - APHASIA Status: Acute (4) Intracranial hemorrhage Code(s): I62.9 - NONTRAUMATIC INTRACRANIAL HEMORRHAGE, UNSPECIFIED Status: Acute - Plan Improvement today compared to yesterday morning - Appreciate NS directing care - steroids, keppra, Heparin gtt with goal PTT 60- 80 Blood sugar slightly elevated - attribute to steroids - prn ISS with meals Blood pressure well controlled, and bradycardia is asx GI prophy - famotidine DVT prophy - SCD's and heparin gtt code status full Pt to remain in ICU - in guarded condition
--- NOTE | 2019-10-24 15:37 | PRG ---
DATE OF SERVICE: 10/24/2019 The patient is seen and examined. She is up in the chair, interacting with her family members. This is similar to how she was yesterday evening when I stopped by. Her degree of right-sided weakness, right-sided neglect, and even to some degree her receptive language function have all improved. She is having visual difficulty likely related to optic radiations in the left temporal lobe and possibly also some diplopia. Her CT scan is generally stable. There may be a trace more edema than yesterday. There is no progression of hemorrhage. IMPRESSION AND PLAN: We will discontinue the Grande at the patient's request, although it will need to be replaced if she requires any future mannitol. I have increased her range for anticoagulation to a target PTT of 80 to 100. We will get a followup head CT tomorrow and if this is stable, we may stop daily head CTs. Discussed at length with the patient and her family. Job ID: [id number]
[2019-10-24] MEDS: Heparin 25,000 units/D5W 500 ML IV SCH (23:40)
[2019-10-25] MEDS: Sodium Chloride 0.9% 1,000 ML IV SCH ×3 (03:15→17:44)
[2019-10-25 03:36] LABS: #Lymphocytes 0.7 thou/uL (1.20-3.40); #Monocytes 0.3 thou/uL (0.11-0.59); #Neutrophils 4.9 thou/uL (1.40-6.50); %Eosinophils 0.1 % (0.0-10.0); %Lymphocytes 11.6 % (21.0-51.0); %Monocytes 4.3 % (0.0-10.0); %Neutrophils 84.1 % (42.0-75.0); Hemoglobin 12.9 g/dL (12.0-16.0); Mean Corpuscular HGB CONC 34.4 g/dL (32.0-36.0); Mean Corpuscular Volume 93.2 fL (78.0-98.0); Mean Platelet Volume 9.7 fL (7.4-10.4); Platelet Count 191 thou/uL (130-400); RBC Distribution Width 10.6 % (11.5-14.5); Red Blood Cell (RBC) Count 4.03 mill/uL (4.20-5.40); White Blood Cell (WBC) Count 5.8 thou/uL (4.8-10.8)
[2019-10-25 03:50] LABS: PTT 118.5 SEC (22.9-36.1)
[2019-10-25 03:57] LABS: Anion Gap 10 mmol/L (10-20); BUN (Urea Nitrogen) 11 mg/dL (7.0-18.7); Calc. Creatinine Clearance 112 mL/min (70-130); Calcium 8.1 mg/dL (7.8-10.44); Carbon Dioxide 23 mmol/L (22-29); Chloride 109 mmol/L (98-107); Estimated GFR-MDRD 83; Glucose 168 mg/dL (70-105); Potassium 3.9 mmol/L (3.5-5.1); Sodium 138 mmol/L (136-145)
[2019-10-25] MEDS: Dexamethasone 4 mg/ml Vial SLOW IVP SCH ×3 (06:27→21:16)
--- NOTE | 2019-10-25 07:48 | CT ---
PRELIMINARY REPORT/[facility]/EMERGENCY AFTER HOURS PROCEDURE EXAM: CT Head Without Intravenous Contrast. CLINICAL HISTORY: F/u [facility] TECHNIQUE: Axial computed tomography images of the head/brain without intravenous contrast. COMPARISON: None provided. FINDINGS: BRAIN: Stable appearance of left temporal intraparenchymal hemorrhage with surrounding edema, sulcal effacement and effacement of the left lateral ventricle. Unchanged 7 mm tyro-qy-wdiww midline shift. No transtentorial herniation. Small subarachnoid hemorrhage in the left sylvian fissure. VENTRICLES: No hydrocephalus. ORBITS: The orbits are unremarkable. SINUSES AND MASTOIDS: The paranasal sinuses and mastoid air cells are clear. SOFT TISSUES: No significant facial or scalp soft tissue swelling evident. No radiopaque foreign body is seen. BONES: No acute skull fracture. IMPRESSION: Unchanged left temporal intracranial hemorrhage with surrounding vasogenic edema, 7 mm left to right midline shift and small subarachnoid hemorrhage. ELECTRONICALLY SIGNED BY: Lux Morris M.D. Oct 25, 2019 4:01:35 AM PR[facility] LISTER This report is intended for review by the ordering physician only, in accordance of law. If you recei ve this report in error, please call [facility] at [phone]. FINAL REPORT CT Brain WO Con History: Hemorrhage following Comparison: Multiple prior examinations, most recent prior day Findings: The findings and impression are concordant with the preliminary report. Although relatively unchanged from yesterday, there is moderate increase in vasogenic edema and mass effect with obau-bi-xxisy shift dating back to the October 21, 2019 exam. Impression: Findings and impression are concordant with the preliminary report. Transcribed Date/Time: 10/25/2019 8:12 AM
--- NOTE | 2019-10-25 08:35 | PRG ---
DATE OF SERVICE: 10/25/2019 SUBJECTIVE: This morning, she is awake, alert, and responsive. She is verbalizing somewhat, but still encephalopathic. OBJECTIVE: VITAL SIGNS: O2 saturation 96% on room air, blood pressure 120/60, and respirations 18. CHEST: Reveal no wheezing or crackles. CARDIAC: Normal S1 and S2. No gallops. ABDOMEN: Soft. DIAGNOSTIC DATA: PTT is 118. Lytes are normal. CT brain still shows hemorrhage, slight edema. ASSESSMENT: Intracerebral hemorrhage secondary to cerebral venous thrombosis encephalopathic. PLAN: Continue supportive care, Decadron, PT. We the follow while in the ICU. Heparin on board. Job ID: [id number]
--- NOTE | 2019-10-25 08:50 | PRG ---
DATE OF SERVICE: 10/25/2019 SUBJECTIVE: The patient remains stable in the ICU. She has had no overnight events. Her repeat CT head is also stable this morning. On my arrival, she is sitting up comfortably in the chair. Her speech is markedly improved. Her PTT was slightly elevated at 112 this morning and rate was decreased per the protocol. We removed her Grande catheter yesterday and she has been urinating without any difficulty. OBJECTIVE: GENERAL: On exam this morning, she is awake, alert. Speech is much more fluid. She is oriented to person, place, and time. She is significantly weak on the right side with notable drift. HEENT: Pupils are still slightly unequal, right slightly larger than the left, but they react briskly. PLAN: We will continue current heparin protocol. I have decreased her Decadron to 3 mg t.i.d. We will begin mobilizing the patient more and I have approved ambulation with assistance. Continue to work with PT, OT, and speech therapy. Job ID: [id number] MTDD
[2019-10-25] MEDS: levETIRAcetam In NaCl (Iso-Os) 1,000 MG in Premix Bag 1 BAG IVPB SCH ×2 (09:06→20:02)
[2019-10-25] MEDS: Famotidine/PF 20 mg/2ml Vial SLOW IVP SCH ×2 (09:06→20:02)
--- NOTE | 2019-10-25 09:18 | PDOC.HOSPP ---
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 Pt has been managed in the ICU on steroids, serial CT scans, started on heprain gtt because of the thrombosis. Today she is sitting up in chair, with more ability to speak. Continues to have right sided deficits, expressive and receptive aphasia. Denies any pain, reports that bowels are moving. - Objective Vital Signs & Weight: Vital Signs (12 hours) Temp 10/25/19 08:00 98.7 F 10/25/19 04:00 98.5 F 10/25/19 00:00 98.6 F Weight Admit Weight 161 lb Weight 163 lb 2.273 oz Most Recent Monitor Data Heart Rate from ECG 55 NIBP 149/68 NIBP BP-Mean 95 Respiration from ECG 14 SpO2 98 I&O: 10/24/19 10/25/19 10/26/19 06:59 06:59 06:59 Intake Total 3509 4499 Output Total 2840 4425 250 Balance 669 74 -250 Result Diagrams: 10/25/19 03:07 10/25/19 03:07 Additional Labs: Accuchecks 10/24/19 10/24/19 10/24/19 21:46 17:15 12:01 POC Glucose 151 H 153 H 130 H EKG Reviewed by me: Yes (tele - sinus 70's, occ sinus israel) Hospitalist ROS - Medication Medications: Active Medications Generic Name Dose Route Start Last Admin Trade Name Freq PRN Reason Stop Dose Admin Acetaminophen 650 mg 10/21/19 16:33 10/23/19 13:39 Tylenol PO 650 mg Q6H PRN Administration Headache/Fever or Pain Acetaminophen 650 mg 10/21/19 17:07 10/22/19 05:20 Tylenol NE 650 mg Q4H PRN Administration Headache/Fever or Pain Famotidine 20 mg 10/21/19 21:00 10/25/19 09:06 Pepcid SLOW IVP 20 mg Q12HR YASHIRA Administration Fentanyl 50 mcg 10/21/19 17:10 10/22/19 16:07 Sublimaze SLOW IVP 50 mcg Q2H PRN Administration Severe Pain (7-10) Levetiracetam 1,000 mg/ Device 100 mls @ 200 mls/hr 10/21/19 21:00 10/25/19 09:06 IVPB 100 mls BID YASHIRA Administration Sodium Chloride 1,000 mls @ 150 mls/hr 10/21/19 13:15 10/25/19 03:15 Normal Saline 0.9% IV 1,000 mls .Q6H40M YASHIRA Administration Heparin Sodium/Dextrose 500 mls @ 0 mls/hr 10/24/19 09:45 10/24/19 23:40 Heparin 25,000 Units/D5w 500 Ml IV 500 mls INF YASHIRA Administration Protocol As Directed Ondansetron HCl 4 mg 10/21/19 10:19 10/23/19 14:13 Zofran IVP 4 mg Q6H PRN Administration Nausea/Vomiting - Exam General Appearance: NAD ENT - other findings: right facial droop Heart: RRR, no murmur Respiratory: CTAB, no wheezes, no rales, no ronchi Gastrointestinal: soft, non-tender, non-distended, normal bowel sounds Extremities: no cyanosis, no clubbing, no edema Psychiatric: normal affect Hosp A/P (1) Cerebral venous sinus thrombosis, acute Code(s): G08 - INTRACRANIAL AND INTRASPINAL PHLEBITIS AND THROMBOPHLEBITIS Status: Acute (2) Bradycardia Code(s): R00.1 - BRADYCARDIA, UNSPECIFIED Status: Acute (3) Combined receptive and expressive aphasia Code(s): R47.01 - APHASIA Status: Acute (4) Intracranial hemorrhage Code(s): I62.9 - NONTRAUMATIC INTRACRANIAL HEMORRHAGE, UNSPECIFIED Status: Acute - Plan Improvement again today compared to yesterday morning - Appreciate NS directing care - steroids decreased, keppra, Heparin gtt with goal 80-100 - RN reports it was lowered this morning due to elevated PTT Blood sugar slightly elevated - attributed to steroids - prn ISS with meals Blood pressure into the 140's at times - goal is less than 150's PT/OT/speech GI prophy - famotidine DVT prophy - SCD's and heparin gtt code status full Pt to remain in ICU - in guarded condition
--- NOTE | 2019-10-25 14:38 | PRG ---
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 She has been up in the chair all morning with continued clinical improvement. CT this morning was stable. We are targeting a PTT of 80 to 100 and we will continue to adjust her heparin drip to achieve this. It is too early to transfer her to oral anticoagulants. We are weaning down her Decadron and I move to three t.i.d. today and we will continue to wean. We will be more aggressive with her rehab treatment and I anticipate transfer to the floor in the next 1 to 2 days. At that time, we will ask the Hospitalist Service to assume the primary responsibility as it seems that the role for neurosurgical intervention has become quite low. Job ID: [id number]
[2019-10-25] MEDS: Heparin 25,000 units/D5W 500 ML IV SCH (21:00)
[2019-10-26] MEDS: Sodium Chloride 0.9% 1,000 ML IV SCH ×2 (00:58→07:24)
[2019-10-26 04:07] LABS: #Lymphocytes 0.8 thou/uL (1.20-3.40); #Monocytes 0.6 thou/uL (0.11-0.59); #Neutrophils 5.9 thou/uL (1.40-6.50); %Basophils 0.2 % (0.0-1.0); %Eosinophils 0.1 % (0.0-10.0); %Lymphocytes 11.4 % (21.0-51.0); %Monocytes 7.5 % (0.0-10.0); %Neutrophils 80.8 % (42.0-75.0); Hemoglobin 12.7 g/dL (12.0-16.0); Mean Corpuscular HGB CONC 35.2 g/dL (32.0-36.0); Mean Corpuscular Hemoglobin 32.4 pg (27.0-31.0); Mean Corpuscular Volume 92.1 fL (78.0-98.0); Mean Platelet Volume 9.2 fL (7.4-10.4); Platelet Count 213 thou/uL (130-400); RBC Distribution Width 10.6 % (11.5-14.5); Red Blood Cell (RBC) Count 3.92 mill/uL (4.20-5.40); White Blood Cell (WBC) Count 7.3 thou/uL (4.8-10.8)
[2019-10-26 04:28] LABS: Anion Gap 11 mmol/L (10-20); BUN (Urea Nitrogen) 10 mg/dL (7.0-18.7); Calc. Creatinine Clearance 107 mL/min (70-130); Calcium 8.2 mg/dL (7.8-10.44); Carbon Dioxide 24 mmol/L (22-29); Chloride 103 mmol/L (98-107); Estimated GFR-MDRD 83; Glucose 188 mg/dL (70-105); Potassium 3.6 mmol/L (3.5-5.1); Sodium 134 mmol/L (136-145)
[2019-10-26 04:37] LABS: PTT 219.9 SEC (22.9-36.1)
[2019-10-26] MEDS: Dexamethasone 4 mg/ml Vial SLOW IVP SCH ×3 (06:08→21:23)
--- NOTE | 2019-10-26 07:11 | PRG ---
DATE OF SERVICE: 10/26/2019 SUBJECTIVE: The patient had no overnight events. She is currently resting comfortably on my arrival. We continued to have her on a heparin protocol with a PTT target range of 80 to 100. I began tapering her steroids, and she is currently at 3 mg of IV Decadron q.8 h. OBJECTIVE: On exam this morning, the patient awakens easily. She continues to have significant aphasia, but it does seem somewhat improved. She has good strength in the left upper and lower extremity. She does have somewhat improved strength in the right lower extremity with left drift. Continues to have significant weakness in the right upper extremity with drift. PLAN: I will continue to taper down on her steroids, and I will change Decadron to 2 mg IV q.8 h. We will continue her current heparin protocol. I anticipate transfer both to the floor in the next day or so. Job ID: [id number]
--- NOTE | 2019-10-26 07:54 | PRG ---
DATE OF SERVICE: 10/26/2019 SUBJECTIVE: The patient remains in the ICU. There have been no events overnight. OBJECTIVE: VITAL SIGNS: Temperature is 98.5, pulse 60, blood pressure 139/79, O2 saturation 97%. HEENT: Unremarkable. NECK: No adenopathy or JVD. LUNGS: Clear. CARDIAC: S1, S2, regular. ABDOMEN: Soft. EXTREMITIES: No edema. She has right-sided neglect. LABORATORY DATA: White blood cell count 7.3, hematocrit 36.1, and platelet count 213. PTT is 87. Sodium 134, potassium 3.6, chloride 103, CO2 of 24, BUN 10, creatinine 0.7, glucose 188. ASSESSMENT: 1. Central venous thrombosis. 2. Right-sided hemiparesis. PLAN: At some point, I would recommend transitioning the heparin over to Coumadin. Nothing else to offer from Pulmonary standpoint. I am available as needed. Job ID: [id number]
[2019-10-26] MEDS: levETIRAcetam In NaCl (Iso-Os) 1,000 MG in Premix Bag 1 BAG IVPB SCH ×2 (08:03→21:23)
[2019-10-26] MEDS: Famotidine/PF 20 mg/2ml Vial SLOW IVP SCH ×2 (08:03→21:23)
--- NOTE | 2019-10-26 08:59 | PDOC.HOSPP ---
- Subjective Encounter Date: 10/26/19 Encounter Time: 11:40 Subjective: Patient sitting up eating today. Still neglecting right side but less than before. Can now return a few pleasantries in conversation, but still not understanding most of what I say. - Objective Vital Signs & Weight: Vital Signs (12 hours) Temp 10/26/19 04:00 98.5 F 10/26/19 00:00 98.5 F Weight Admit Weight 161 lb Weight 118 lb 13.266 oz Most Recent Monitor Data Heart Rate from ECG 52 NIBP 139/79 NIBP BP-Mean 99 Respiration from ECG 18 SpO2 97 I&O: 10/25/19 10/26/19 10/27/19 06:59 06:59 06:59 Intake Total 4499 4202 Output Total 4494 3625 Balance 74 577 Result Diagrams: 10/26/19 03:50 10/26/19 03:50 Additional Labs: Accuchecks 10/25/19 10/25/19 10/25/19 21:55 16:41 10:17 POC Glucose 142 H 143 H 120 H Hospitalist ROS - Review of Systems ROS unobtainable: due to mental status - Medication Medications: Active Medications Generic Name Dose Route Start Last Admin Trade Name Freq PRN Reason Stop Dose Admin Acetaminophen 650 mg 10/21/19 16:33 10/23/19 13:39 Tylenol PO 650 mg Q6H PRN Administration Headache/Fever or Pain Acetaminophen 650 mg 10/21/19 17:07 10/22/19 05:20 Tylenol DE 650 mg Q4H PRN Administration Headache/Fever or Pain Famotidine 20 mg 10/21/19 21:00 10/26/19 08:03 Pepcid SLOW IVP 20 mg Q12HR YASHIRA Administration Fentanyl 50 mcg 10/21/19 17:10 10/22/19 16:07 Sublimaze SLOW IVP 50 mcg Q2H PRN Administration Severe Pain (7-10) Levetiracetam 1,000 mg/ Device 100 mls @ 200 mls/hr 10/21/19 21:00 10/26/19 08:03 IVPB 100 mls BID YASHIRA Administration Heparin Sodium/Dextrose 500 mls @ 0 mls/hr 10/24/19 09:45 10/25/19 21:00 Heparin 25,000 Units/D5w 500 Ml IV 500 mls INF YASHIRA Administration Protocol As Directed Ondansetron HCl 4 mg 10/21/19 10:19 10/23/19 14:13 Zofran IVP 4 mg Q6H PRN Administration Nausea/Vomiting - Exam General Appearance: NAD Heart: RRR, no murmur, no gallops, no rubs Respiratory: CTAB, no wheezes, no rales, no ronchi Gastrointestinal: soft, non-tender, non-distended, normal bowel sounds Neurological - other findings: moving left side mostly Psychiatric: normal affect, not oriented Hosp A/P (1) Cerebral venous sinus thrombosis, acute Code(s): G08 - INTRACRANIAL AND INTRASPINAL PHLEBITIS AND THROMBOPHLEBITIS Status: Acute (2) Intracranial hemorrhage Code(s): I62.9 - NONTRAUMATIC INTRACRANIAL HEMORRHAGE, UNSPECIFIED Status: Acute (3) Combined receptive and expressive aphasia Code(s): R47.01 - APHASIA Status: Acute (4) Bradycardia Code(s): R00.1 - BRADYCARDIA, UNSPECIFIED Status: Acute - Plan Being treated by neurosurgery with heparin drip, no surgical intervention necessary Eventually will need transition to Coumadin or Pradaxa- ok to start tomorrow per Neurosurgery on [facility] for seizure prevention Transition to the floor today, will need PT/OT and rehab placement eventually GI proph: Pecid DVT proph: SCDs, on heparin
--- NOTE | 2019-10-26 11:14 | PRG ---
DATE OF SERVICE: 10/26/2019 The patient is doing quite well. She is up in a chair and interactive. While it does seem at times that her receptive aphasia has improved, there is still a dense amount of receptive aphasia to go along with the severe expressive aphasia. Motor deficit continues to improve as is her degree of neglect. We will stop the supplemental IV fluids today. I believe she could be transferred to the stroke unit today and we will discuss this with the Hospitalist Service. Anticipate decision on conversion to oral anticoagulation mid week. Job ID: [id number]
[2019-10-26] MEDS ORDERED: Senokot 8.6 MG TAB PO PRN (11:51)
[2019-10-26] MEDS: Heparin 25,000 units/D5W 500 ML IV SCH ×2 (17:03→18:31)
[2019-10-26] MEDS: Docusate 100 MG CAP PO SCH (21:23)
[2019-10-27 05:24] LABS: #Monocytes 0.5 thou/uL (0.11-0.59); #Neutrophils 6.5 thou/uL (1.40-6.50); %Basophils 0.1 % (0.0-1.0); %Eosinophils 0.3 % (0.0-10.0); %Lymphocytes 12.5 % (21.0-51.0); %Monocytes 5.6 % (0.0-10.0); %Neutrophils 81.5 % (42.0-75.0); Hemoglobin 13.5 g/dL (12.0-16.0); Mean Corpuscular HGB CONC 34.1 g/dL (32.0-36.0); Mean Corpuscular Hemoglobin 31.4 pg (27.0-31.0); Mean Corpuscular Volume 92.1 fL (78.0-98.0); Mean Platelet Volume 8.9 fL (7.4-10.4); Platelet Count 247 thou/uL (130-400); RBC Distribution Width 10.8 % (11.5-14.5); Red Blood Cell (RBC) Count 4.28 mill/uL (4.20-5.40); White Blood Cell (WBC) Count 7.9 thou/uL (4.8-10.8)
[2019-10-27 05:41] LABS: Anion Gap 12 mmol/L (10-20); BUN (Urea Nitrogen) 12 mg/dL (7.0-18.7); Calc. Creatinine Clearance 82 mL/min (70-130); Calcium 8.5 mg/dL (7.8-10.44); Carbon Dioxide 26 mmol/L (22-29); Chloride 102 mmol/L (98-107); Estimated GFR-MDRD 87; Glucose 132 mg/dL (70-105); Potassium 3.5 mmol/L (3.5-5.1); Sodium 136 mmol/L (136-145)
[2019-10-27] MEDS: Dexamethasone 4 mg/ml Vial SLOW IVP SCH ×3 (05:55→22:36)
--- NOTE | 2019-10-27 06:56 | PRG ---
DATE OF SERVICE: SUBJECTIVE: The patient was transitioned to the stroke unit yesterday. She remained stable. She reports she was able to rest a little better overnight here on the stroke floor. OBJECTIVE: On exam this morning, she awakens easily. She continues to have some right-sided weakness, but the drift in the right upper extremity seems significantly improved this morning. The patient continues to have a degree of receptive and expressive aphasia, but this also seems to be improving in time. PLAN: We will continue to decrease her steroid dose and I have changed her Decadron to 1 mg IV t.i.d. There are plans to transition her from heparin protocol to oral anticoagulation and this will be managed by the Medical Service. We will continue to follow along closely. Job ID: [id number]
--- NOTE | 2019-10-27 07:54 | PDOC.HOSPP ---
- Subjective Encounter Date: 10/27/19 Encounter Time: 10:10 Subjective: Patient doing well overnight. No changes. Talking a bit better but still without understanding of what people are saying. Less neglect of right side per nursing. - Objective Vital Signs & Weight: Vital Signs (12 hours) Temp Pulse Resp BP Pulse Ox 10/27/19 04:00 98.9 F 51 L 16 117/74 97 10/26/19 20:00 98.3 F 80 18 112/72 98 Weight Admit Weight 161 lb Weight 118 lb 4.8 oz Most Recent Monitor Data Heart Rate from ECG 66 NIBP 114/66 NIBP BP-Mean 82 Respiration from ECG 22 SpO2 98 I&O: 10/26/19 10/27/19 10/28/19 06:59 06:59 06:59 Intake Total 4202 660 Output Total 3625 1450 Balance 577 -790 Result Diagrams: 10/27/19 05:00 10/27/19 05:00 Additional Labs: Accuchecks 10/27/19 10/26/19 10/26/19 05:25 20:21 10:06 POC Glucose 142 H 112 H 118 H Hospitalist ROS - Review of Systems ROS unobtainable: due to mental status - Medication Medications: Active Medications Generic Name Dose Route Start Last Admin Trade Name Freq PRN Reason Stop Dose Admin Acetaminophen 650 mg 10/21/19 16:33 10/23/19 13:39 Tylenol PO 650 mg Q6H PRN Administration Headache/Fever or Pain Acetaminophen 650 mg 10/21/19 17:07 10/22/19 05:20 Tylenol NC 650 mg Q4H PRN Administration Headache/Fever or Pain Docusate Sodium 100 mg 10/26/19 21:00 10/26/19 21:23 Colace PO 100 mg BID YASHIRA Administration Famotidine 20 mg 10/21/19 21:00 10/26/19 21:23 Pepcid SLOW IVP 20 mg Q12HR YASHIRA Administration Fentanyl 50 mcg 10/21/19 17:10 10/22/19 16:07 Sublimaze SLOW IVP 50 mcg Q2H PRN Administration Severe Pain (7-10) Levetiracetam 1,000 mg/ Device 100 mls @ 200 mls/hr 10/21/19 21:00 10/26/19 21:23 IVPB 100 mls BID YASHIRA Administration Heparin Sodium/Dextrose 500 mls @ 0 mls/hr 10/24/19 09:45 10/26/19 18:31 Heparin 25,000 Units/D5w 500 Ml IV 10/27/19 09:00 500 mls INF YASHIRA Administration Protocol As Directed Ondansetron HCl 4 mg 10/21/19 10:19 10/23/19 14:13 Zofran IVP 4 mg Q6H PRN Administration Nausea/Vomiting - Exam General Appearance: NAD ENT: moist mucosa Heart: RRR, no murmur, no gallops, no rubs Respiratory: CTAB, no wheezes, no rales, no ronchi Gastrointestinal: soft, non-tender, non-distended, normal bowel sounds Neurological - other findings: weak and neglect on right Psychiatric: normal affect, not oriented Hosp A/P (1) Cerebral venous sinus thrombosis, acute Code(s): G08 - INTRACRANIAL AND INTRASPINAL PHLEBITIS AND THROMBOPHLEBITIS Status: Acute (2) Intracranial hemorrhage Code(s): I62.9 - NONTRAUMATIC INTRACRANIAL HEMORRHAGE, UNSPECIFIED Status: Acute (3) Combined receptive and expressive aphasia Code(s): R47.01 - APHASIA Status: Acute (4) Bradycardia Code(s): R00.1 - BRADYCARDIA, UNSPECIFIED Status: Acute - Plan Per NSurg ok to switch to oral anticoagulant today Will stop heparin drip and immediately give first dose of Pradaxa on Keppra for seizure prevention Will need PT/OT and rehab placement eventually GI proph: Pecid DVT proph: SCDs, on heparin
[2019-10-27] MEDS: Famotidine/PF 20 mg/2ml Vial SLOW IVP SCH ×2 (08:41→22:35)
[2019-10-27] MEDS: levETIRAcetam In NaCl (Iso-Os) 1,000 MG in Premix Bag 1 BAG IVPB SCH ×2 (08:42→22:38)
[2019-10-27] MEDS: Dabigatran 150 mg Capsule PO SCH ×2 (08:42→22:35)
[2019-10-27] MEDS: Docusate 100 MG CAP PO SCH ×2 (08:42→22:35)
--- NOTE | 2019-10-27 13:42 | PRG ---
DATE OF SERVICE: 10/27/2019 The patient is seen and examined. She is alert and interactive. Dense expressive aphasia remains, but the degree of receptive language function does seem to be improving. I do anticipate that the motor deficit and neglect will improve much faster than language deficit. Language deficit is primarily due to destructive affect of the hemorrhage. The patient has been converted to oral anticoagulation by the Medicine Service today. We are weaning down her Decadron. I anticipate she will be off steroids tomorrow. We will stop her IV fluids. Rehab screen is underway. I anticipate this may be inpatient rehab may be considered toward the end of the week or beginning of next. From the standpoint of her followup, I will arrange four-week head CT and outpatient visit. I am also going to arrange an elective outpatient consultation with the stroke neurologist with respect to assessment of hypercoagulability and decision making over long-term oral anticoagulation. I visited with the patient, and father and all questions were answered. Job ID: [id number]
[2019-10-28 04:54] LABS: #Eosinphils 0.1 thou/uL (0.0-0.7); #Lymphocytes 1.6 thou/uL (1.20-3.40); #Monocytes 0.8 thou/uL (0.11-0.59); %Basophils 0.1 % (0.0-1.0); %Eosinophils 0.8 % (0.0-10.0); %Lymphocytes 16.9 % (21.0-51.0); %Monocytes 8.6 % (0.0-10.0); %Neutrophils 73.7 % (42.0-75.0); Hemoglobin 13.6 g/dL (12.0-16.0); Mean Corpuscular HGB CONC 35.3 g/dL (32.0-36.0); Mean Corpuscular Hemoglobin 32.7 pg (27.0-31.0); Mean Corpuscular Volume 92.4 fL (78.0-98.0); Mean Platelet Volume 8.6 fL (7.4-10.4); Platelet Count 227 thou/uL (130-400); Red Blood Cell (RBC) Count 4.15 mill/uL (4.20-5.40); White Blood Cell (WBC) Count 9.5 thou/uL (4.8-10.8)
[2019-10-28 05:15] LABS: Anion Gap 11 mmol/L (10-20); BUN (Urea Nitrogen) 15 mg/dL (7.0-18.7); Calc. Creatinine Clearance 79 mL/min (70-130); Calcium 8.2 mg/dL (7.8-10.44); Carbon Dioxide 24 mmol/L (22-29); Chloride 103 mmol/L (98-107); Estimated GFR-MDRD 85; Glucose 114 mg/dL (70-105); Potassium 3.5 mmol/L (3.5-5.1); Sodium 134 mmol/L (136-145)
--- NOTE | 2019-10-28 05:59 | PRG ---
DATE OF SERVICE: 10/28/2019 SUBJECTIVE: The patient continues to improve with regard to her right-sided weakness, expressive and receptive aphasia. She was switched to oral anticoagulation yesterday. I have also been trending down her steroids, and she is currently at a dose of 1 mg IV Decadron t.i.d. She has had no overnight events and is resting comfortably. OBJECTIVE: On exam, she awakens easily. She is alert. She has improved expressive and receptive aphasia and has improved strength on the right side. PLAN: We will go ahead and discontinue her steroids today. I have also switched her Keppra to p.o. dosing. I have placed a rehab screen and anticipate transition to rehab in the near future. Job ID: [id number]
[2019-10-28] MEDS: levETIRAcetam 500 MG TAB PO SCH ×2 (09:25→22:31)
[2019-10-28] MEDS: Docusate 100 MG CAP PO SCH ×2 (09:26→22:31)
[2019-10-28] MEDS: Famotidine 20 MG TAB PO SCH ×2 (09:27→22:31)
[2019-10-28] MEDS: Dabigatran 150 mg Capsule PO SCH ×2 (09:27→22:31)
--- NOTE | 2019-10-28 14:21 | PDOC.HOSPP ---
- Subjective Encounter Date: 10/28/19 Encounter Time: 14:10 Subjective: f/u for ICH and venous sinus thrombosis with dense expressive/receptive aphasia. Taking po intake ok. No new issues. Awaiting rehab approval. - Objective Vital Signs & Weight: Vital Signs (12 hours) Temp Pulse Pulse Resp BP BP Pulse Ox 10/28/19 12:00 98.3 F 65 16 103/64 97 10/28/19 08:40 76 98/62 10/28/19 07:49 98.4 F 54 L 16 120/56 L 97 10/28/19 06:00 97.7 F 51 L 16 115/73 98 Weight Admit Weight 161 lb Weight 118 lb 4.8 oz Most Recent Monitor Data Heart Rate from ECG 66 NIBP 114/66 NIBP BP-Mean 82 Respiration from ECG 22 SpO2 98 I&O: 10/27/19 10/28/19 10/29/19 06:59 06:59 06:59 Intake Total 660 290 Output Total 1450 Balance -790 290 Result Diagrams: 10/28/19 04:35 10/28/19 04:35 EKG Reviewed by me: Yes (Tele - SR) Hospitalist ROS - Medication Medications: Active Medications Generic Name Dose Route Start Last Admin Trade Name Freq PRN Reason Stop Dose Admin Acetaminophen 650 mg 10/21/19 16:33 10/23/19 13:39 Tylenol PO 650 mg Q6H PRN Administration Headache/Fever or Pain Acetaminophen 650 mg 10/21/19 17:07 10/22/19 05:20 Tylenol AK 650 mg Q4H PRN Administration Headache/Fever or Pain Dabigatran 150 mg 10/27/19 09:00 10/28/19 09:27 Pradaxa PO 150 mg BID YASHIRA Administration Docusate Sodium 100 mg 10/26/19 21:00 10/28/19 09:26 Colace PO Not Given BID YASHIRA Famotidine 20 mg 10/28/19 09:00 10/28/19 09:27 Pepcid PO 20 mg Q12HR YASHIRA Administration Fentanyl 50 mcg 10/21/19 17:10 10/22/19 16:07 Sublimaze SLOW IVP 50 mcg Q2H PRN Administration Severe Pain (7-10) Levetiracetam 1,000 mg 10/28/19 09:00 10/28/19 09:25 Keppra PO 1,000 mg BID YASHIRA Administration Ondansetron HCl 4 mg 10/21/19 10:19 10/23/19 14:13 Zofran IVP 4 mg Q6H PRN Administration Nausea/Vomiting - Exam General Appearance: NAD, awake alert Eye: PERRL, anicteric sclera ENT: normocephalic atraumatic, no oropharyngeal lesions Neck: supple, symmetric, no JVD, no thyromegaly Heart: RRR, no murmur, no gallops, no rubs, normal peripheral pulses Respiratory: CTAB, no wheezes, no rales, no ronchi, normal chest expansion Gastrointestinal: soft, non-tender, non-distended, normal bowel sounds, no palpable masses Extremities: no cyanosis, no clubbing, no edema Skin: normal turgor, no lesions Neurological - other findings: Expressive/receptive aphasia, R hemiparesis Musculoskeletal: generalized weakness Psychiatric: oriented to person Hosp A/P (1) Cerebral venous sinus thrombosis, acute Code(s): G08 - INTRACRANIAL AND INTRASPINAL PHLEBITIS AND THROMBOPHLEBITIS Status: Acute Plan: Continue Pradaxa per NS recommendations (2) Intracranial hemorrhage Code(s): I62.9 - NONTRAUMATIC INTRACRANIAL HEMORRHAGE, UNSPECIFIED Status: Acute Plan: Resolving (3) Combined receptive and expressive aphasia Code(s): R47.01 - APHASIA Status: Acute Plan: Continue WOOD TANK ERECTOR, slow clinical improvement (4) Bradycardia Code(s): R00.1 - BRADYCARDIA, UNSPECIFIED Status: Chronic Plan: Supportive mgmt - Plan PT/OT, oncology social worker, speech therapy, DVT proph w/SCDs Stable currently Continue Pradaxa Continue Keppra 1gm BID Rehab evaluation pending Continue PT/OT/WOOD TANK ERECTOR
[2019-10-28] MEDS: Acetaminophen 325 MG TAB PO PRN (22:31)
[2019-10-29] MEDS: Acetaminophen 325 MG TAB PO PRN (05:12)
--- NOTE | 2019-10-29 08:27 | PRG ---
DATE OF SERVICE: 10/29/2019 SUBJECTIVE: The patient continues to do well on the stroke floor and has had improvements in her right-sided weakness and aphasia both expressive and receptive. All her medications have been changed to p.o. Her steroids were discontinued yesterday and her Keppra was changed to 1000 p.o. b.i.d. She has been accepted to inpatient rehabilitation and currently waiting on insurance authorization. OBJECTIVE: On exam, she awakens easily. She is in no acute distress. She is moving all 4s easily. There is still some slight weakness appreciated in the right upper extremity. Her speech is more clear. PLAN: We will continue to work with PT, OT, and Speech while inpatient here and I anticipate the patient will be transitioned to rehab in the next few days. Job ID: [id number]
[2019-10-29] MEDS: Docusate 100 MG CAP PO SCH ×2 (08:28→20:57)
[2019-10-29] MEDS: levETIRAcetam 500 MG TAB PO SCH ×2 (09:17→20:57)
[2019-10-29] MEDS: Dabigatran 150 mg Capsule PO SCH ×2 (09:18→20:57)
[2019-10-29] MEDS: Famotidine 20 MG TAB PO SCH ×2 (09:19→20:57)
--- NOTE | 2019-10-29 09:26 | PRG ---
DATE OF SERVICE: 10/29/2019 The patient was seen and examined. She is up in the chair, getting her hair braided. She continues to do quite well. She has mild right-sided weakness, particularly in the arm and the ongoing dysphagia. We will continue with antiepileptics until followup at 4 weeks at least. She will continue with the oral anticoagulation indefinitely. She may go to rehab in the next day or two. I recommend a sodium be checked at rehab to ensure that it does not get lower. I have arranged a 4-week outpatient followup head CT and we will also arrange for her to see Stroke Neurology as an outpatient to assess hypercoagulability and long-term need for anticoagulation. No further surgical recommendations at this point. Job ID: [id number]
[2019-10-29 12:22] VITALS: BMI 24.4
[2019-10-29] MEDS: Sodium Chloride 0.9% 1,000 ML IV SCH ×2 (13:58→23:48)
--- NOTE | 2019-10-29 18:11 | PDOC.HOSPP ---
- Subjective Encounter Date: 10/29/19 Encounter Time: 18:10 Subjective: f/u for ICH and venous sinus thrombosis with expressive/receptive aphasia. Receiving Pradaxa and Keppra. Plan for transfer to in rehab 10/30/19. - Objective Vital Signs & Weight: Vital Signs (12 hours) Temp Pulse Pulse Pulse Resp BP BP 10/29/19 15:15 98.3 F 75 16 10/29/19 11:35 97.4 F L 88 16 10/29/19 09:35 65 66 107/59 L 106/65 10/29/19 08:04 10/29/19 07:32 98 F 70 16 BP BP Pulse Ox 10/29/19 15:15 94/51 L 96 10/29/19 11:35 94/57 L 95 10/29/19 09:35 10/29/19 08:04 96 10/29/19 07:32 107/63 96 Weight Admit Weight 161 lb Weight 151 lb 6.4 oz Most Recent Monitor Data Heart Rate from ECG 66 NIBP 114/66 NIBP BP-Mean 82 Respiration from ECG 22 SpO2 98 I&O: 10/28/19 10/29/19 10/30/19 06:59 06:59 06:59 Intake Total 290 Balance 290 Result Diagrams: 10/28/19 04:35 10/28/19 04:35 EKG Reviewed by me: Yes (Tele - SR) Hospitalist ROS - Medication Medications: Active Medications Generic Name Dose Route Start Last Admin Trade Name Freq PRN Reason Stop Dose Admin Acetaminophen 650 mg 10/21/19 16:33 10/29/19 05:12 Tylenol PO 650 mg Q6H PRN Administration Headache/Fever or Pain Acetaminophen 650 mg 10/21/19 17:07 10/22/19 05:20 Tylenol NE 650 mg Q4H PRN Administration Headache/Fever or Pain Dabigatran 150 mg 10/27/19 09:00 10/29/19 09:18 Pradaxa PO 150 mg BID YASHIRA Administration Docusate Sodium 100 mg 10/26/19 21:00 10/29/19 08:28 Colace PO Not Given BID YASHIRA Famotidine 20 mg 10/28/19 09:00 10/29/19 09:19 Pepcid PO 20 mg Q12HR YASHIRA Administration Fentanyl 50 mcg 10/21/19 17:10 10/22/19 16:07 Sublimaze SLOW IVP 50 mcg Q2H PRN Administration Severe Pain (7-10) Sodium Chloride 1,000 mls @ 100 mls/hr 10/29/19 13:00 10/29/19 13:58 Normal Saline 0.9% IV 1,000 mls .Q10H YASHIRA Administration Levetiracetam 1,000 mg 10/28/19 09:00 10/29/19 09:17 Keppra PO 1,000 mg BID YASHIRA Administration Ondansetron HCl 4 mg 10/21/19 10:19 10/23/19 14:13 Zofran IVP 4 mg Q6H PRN Administration Nausea/Vomiting - Exam General Appearance: NAD, awake alert General - other findings: smiling, responsive Eye: PERRL, anicteric sclera ENT: normocephalic atraumatic, no oropharyngeal lesions Neck: supple, symmetric, no JVD, no thyromegaly Heart: RRR, no murmur, no gallops, no rubs, normal peripheral pulses Respiratory: CTAB, no wheezes, no rales, no ronchi, normal chest expansion Gastrointestinal: soft, non-tender, non-distended, normal bowel sounds Extremities: no cyanosis, no clubbing, no edema Skin: normal turgor, no lesions Neurological: no new deficit Neurological - other findings: expressive/receptive aphasia, R hemiparesis Psychiatric: oriented to person Hosp A/P (1) Cerebral venous sinus thrombosis, acute Code(s): G08 - INTRACRANIAL AND INTRASPINAL PHLEBITIS AND THROMBOPHLEBITIS Status: Acute Plan: Continue Pradaxa indefinitely (2) Intracranial hemorrhage Code(s): I62.9 - NONTRAUMATIC INTRACRANIAL HEMORRHAGE, UNSPECIFIED Status: Acute Plan: Supportive mgmt and stroke protocol (3) Combined receptive and expressive aphasia Code(s): R47.01 - APHASIA Status: Acute Plan: OUTER DIAMETER GRINDER, inpt rehab transfer in next 24h (4) Bradycardia Code(s): R00.1 - BRADYCARDIA, UNSPECIFIED Status: Chronic Plan: Resolved - Plan plan discussed w/ family, PT/OT, social service liaison, speech therapy, DVT proph w/ SCDs Stable currently Continue Pradaxa Continue Keppra 1gm BID Transfer to inpt rehab in 24h IVF's with NS x 24h Continue PT/OT/OUTER DIAMETER GRINDER
[2019-10-30 06:21] LABS: Anion Gap 11 mmol/L (10-20); BUN (Urea Nitrogen) 11 mg/dL (7.0-18.7); Calc. Creatinine Clearance 105 mL/min (70-130); Calcium 8.1 mg/dL (7.8-10.44); Carbon Dioxide 21 mmol/L (22-29); Chloride 108 mmol/L (98-107); Estimated GFR-MDRD 89; Glucose 97 mg/dL (70-105); Magnesium 2.1 mg/dL (1.6-2.6); Potassium 3.8 mmol/L (3.5-5.1); Sodium 136 mmol/L (136-145)
[2019-10-30] MEDS: Dabigatran 150 mg Capsule PO SCH (09:16)
[2019-10-30] MEDS: Famotidine 20 MG TAB PO SCH (09:16)
[2019-10-30] MEDS: levETIRAcetam 500 MG TAB PO SCH (09:16)
[2019-10-30] MEDS: Docusate 100 MG CAP PO SCH (09:17)
[2019-10-30] MEDS: Sodium Chloride 0.9% 1,000 ML IV SCH (09:23)
[2019-10-30 11:54] VITALS: BP 94/50; TEMP 98.6
== END 2019-10-30 14:15 | DRG 64 ==
LOC: ERS 09:52 → CCU 11:47 → EEVIPCON 11:47 → 2SE 10-26 15:23
PROVIDERS: ADMIT Neurological Surgery; ATTEND Neurological Surgery
DX: I62.9 Nontraumatic intracranial hemorrhage, unspecified (principal); I63.9 Cerebral infarction, unspecified; G93.6 Cerebral edema; G08 Intracranial and intraspinal phlebitis and thrombophlebitis; G81.91 Hemiplegia, unspecified affecting right dominant side; R47.01 Aphasia; R00.1 Bradycardia, unspecified; R40.2362 Coma scale, best motor response, obeys commands, at arrival to emergency department; R40.2142 Coma scale, eyes open, spontaneous, at arrival to emergency department; R40.2232 Coma scale, best verbal response, inappropriate words, at arrival to emergency department; R29.711 NIHSS score 11; I10 Essential (primary) hypertension; G43.909 Migraine, unspecified, not intractable, without status migrainosus
CPT/HCPCS: 36415; 36416; 70450; 70496; 70498; 70544; 70553; 80048; 80053; 82550; 83735; 84484; 85025; 85610; 85730; 93005; 93010; 99292; A9579; J0131; J1100; J1644; J1953; J2150; J2405; J3010; J7050; S0028

== ENCOUNTER 2019-12-03 08:55 | Outpatient (CLI) | payer OTHER ==
--- NOTE | 2019-12-03 11:20 | CT ---
CT HEAD WITHOUT CONTRAST: Date: 12/03/2019 INDICATION: Follow-up intracranial hemorrhage. Comparison made to prior exam of 10/25/2019 and 10/21/2019. FINDINGS: There has been interval resolution of the intracranial hemorrhage in the left temporoparietal lobe re gion. There is some residual lucency at the site of the hemorrhage; however, the surrounding edema an d mass effect has resolved. There is no midline shift today. The hemorrhagic density due to acute hem orrhage has resolved and there is now hypodensity at the site of the hemorrhage. No evidence of new mass, infarct, or hemorrhage. IMPRESSION: Continued resolution of the hematoma in the left temporoparietal lobe. Mass effect has resolved. Ther e continues to be lucency at the site of the hematoma. No acute blood products seen today. POS: H
== END 2019-12-03 08:56 | disposition home or self-care (01) ==
LOC: TBSIIMAG 08:55
PROVIDERS: ATTEND Neurological Surgery
DX: I62.9 Nontraumatic intracranial hemorrhage, unspecified (principal)
CPT/HCPCS: 70450